=== PATIENT | male | born 1965 | race Caucasian/White ===

== ENCOUNTER 2017-07-11 04:54 | Emergency (ER) | payer BC ==
[2017-07-11] MEDS ORDERED: Metoclopramide 10 MG/2 ML SDV IVPUSH ONE (05:49)
[2017-07-11] MEDS ORDERED: HYDROmorphone 0.5 MG/0.5 ML SYRINGE IVPUSH ONE ×2 (05:50→09:48)
--- NOTE | 2017-07-11 05:54 | EDM.PDOC ---
ED HPI GENERAL MEDICAL PROBLEM - General Chief Complaint: Abdominal Pain Stated Complaint: STOMACH PAIN LEFT SIDE UNABLE TO KEEP FOOD DOWN Time Seen by Provider: 07/11/17 05:35 Source of Information: Reports: Patient History Limitations: Reports: No Limitations - History of Present Illness INITIAL COMMENTS - FREE TEXT/NARRATIVE: 52-year-old male reports sudden onset of nausea vomiting and followed shortly thereafter by large volume diarrhea about 2:30 in the morning on July 10. He had eaten a pizza which he thought was well cooked from [employer] the evening prior. He doesn't believe he ate out any time in the 24 hours prior to this. Subsequently sent continuous nausea attempts to drink Gatorade or Powerade seems to go right through him. He has retained about 6 crackers in the last 30 hours. Blood noted per rectum. Dual is large-volume water loss slightly yellow in color. He estimates 20 times in the last 24 hours. Mild associated lower abdominal cramping pain. States he's feeling very weak and lightheaded when he tries to stand. No previous similar illness. Onset: Sudden Onset Date: 07/10/17 Onset Time: 02:30 Duration: Hour(s): Location: Reports: Abdomen (Nausea vomiting and prolific large-volume water loss stools are a diarrhea.) Quality: Reports: Other (Has diffuse) Severity: Moderate (ache all over and headache) Improves with: Reports: None Worsens with: Reports: Other Context: Reports: Other (Acute onset of gastroenteritis. Possibly foodborne illness.). Denies: Activity, Exercise, Lifting, Sick Contact, Trauma Associated Symptoms: Reports: Fever/Chills, Headaches (Headache which she rates is currently 7 out of 10 in), Loss of Appetite, Malaise, Nausea/Vomiting (Some chills no defined fever and intractable), Other (Intractable severe diarrhea). Denies: Confusion, Chest Pain, Cough, cough w sputum, Diaphoresis ( not go away. ), Rash, Shortness of Breath, Syncope Treatments CIGARETTE MAKING EXAMINER: Reports: Acetaminophen (Unsure if it stayed down or not.) Right Flank Pain Score (Numeric/FACES): 5 - Related Data Allergies Allergy/AdvReac Type Severity Reaction Status Date / Time bee pollen Allergy Anaphylactic Verified 07/11/17 05:02 Shock Home Meds: Home Meds Ciprofloxacin HCl [Cipro] 500 mg PO BID #12 tablet 07/11/17 [Rx] Dicyclomine [Bentyl] 20 mg PO Q6H PRN #8 tablet 07/11/17 [Rx] Esomeprazole Magnesium 40 mg PO DAILY 07/11/17 [History] Hydrochlorothiazide 25 mg PO DAILY 07/11/17 [History] Nabumetone [Relafen] 500 mg PO DAILY 07/11/17 [History] Ondansetron [Zofran] 4 mg BUCCAL Q6H PRN #8 tab 07/11/17 [Rx] Quinapril HCl 40 mg PO DAILY 07/11/17 [History] Sertraline HCl 200 mg PO DAILY 07/11/17 [History] amLODIPine Besylate [Amlodipine Besylate] 5 mg PO DAILY 07/11/17 [History] atorvaSTATin Calcium [Atorvastatin Calcium] 20 mg PO DAILY 07/11/17 [History] Past Medical History HEENT History: Reports: Impaired Vision Other HEENT History: Wears glasses Cardiovascular History: Reports: High Cholesterol, Hypertension Gastrointestinal History: Reports: GI Bleed, PUD (Had a significant bleed from a peptic ulcer in 2006 with a hemoglobin of 4 requiring multiple blood transfusions. He does remember if he was ever told he had H. pylori infection.) Psychiatric History: Reports: Depression - Past Surgical History Musculoskeletal Surgical History: Reports: Arthroscopic Knee, Arthroscopic Procedure, Shoulder Replacement Social & Family History - Tobacco Use Smoking Status *Q: Never Smoker - Alcohol Use Days Per Week of Alcohol Use: 7 Number of Drinks Per Day: 2 Total Drinks Per Week: 14 - Recreational Drug Use Recreational Drug Use: No - Living Situation & Occupation Living situation: Reports: Single Occupation: Employed [employer] [facility] - Review of Systems Review Of Systems: See Below Constitutional: Reports: Chills, Malaise, Weakness, Fatigue, Decreased Appetite , Weight Loss. Denies: Fever HEENT: Reports: Glasses Respiratory: Reports: No Symptoms Cardiovascular: Reports: No Symptoms Endocrine: Reports: Fatigue GI/Abdominal: Reports: Abdominal Pain (Mostly across the lower ribs bilaterally into his flanks. Described as a deep ache), Diarrhea (Severe watery diarrhea with large volume loss. He estimates 20 times in the last 24 hours.), Decreased Appetite (As he normally 6 crackers in the last 24 hours. Even Gatorade that he puts in seems to go right through him.), Nausea, Vomiting : Reports: Other (Decreased urinary output) Musculoskeletal: Reports: Other (Diffuse mid back pain in the flanks.) Skin: Reports: No Symptoms Neurological: Reports: Dizziness, Weakness (With standing. Feels like he's going to collapse. Analyzed) Psychiatric: Reports: No Symptoms Hematologic/Lymphatic: Reports: No Symptoms Immunologic: Reports: No Symptoms ED EXAM, GI/ABD - Physical Exam Exam: See Below Exam Limited By: No Limitations General Appearance: Alert, WD/WN, No Apparent Distress Eyes: Bilateral: Normal Appearance (No jaundice.) Throat/Mouth: Other Head: Atraumatic (Tongue is dry and coated.), Normocephalic Neck: Normal Inspection, Supple, Non-Tender, Full Range of Motion. No: Lymphadenopathy (L), Lymphadenopathy (R) Respiratory/Chest: No Respiratory Distress, Lungs Clear, Normal Breath Sounds, No Accessory Muscle Use, Other (No smell of ketones on his breath.) Cardiovascular: Normal Peripheral Pulses, Regular Rate, Rhythm, No Edema, No Gallop, No Murmur GI/Abdominal Exam: Soft, Non-Tender, No Organomegaly, No Abnormal Bruit, No Mass , Tender (Slightly tender left lower quadrant in the distribution of the sigmoid colon.), Abnormal Bowel Sounds (Bowel sounds are hyperactive in all 4 quadrants.). No: Guarding, Rigid, Rebound Back Exam: Normal Inspection, Full Range of Motion. No: CVA Tenderness (L), CVA Tenderness (R) Extremities: Other (States he fell on the evening of Monday, July 09. Skin and up his volar aspect of his right wrist. No evidence of infection. No evidence of fracture of the wrist.) Neurological: Alert, Oriented, CN II-XII Intact, Normal Cognition, No Motor/ Sensory Deficits Psychiatric: Other (Mildly cantankerous. Not feeling well) Skin Exam: Warm, Dry, Intact, Normal Color, No Rash Course - Vital Signs Last Recorded V/S: Last Vital Signs Temp 36.3 C 07/11/17 05:02 Pulse 85 07/11/17 05:02 Resp 18 07/11/17 05:02 BP 143/89 H 07/11/17 05:02 Pulse Ox 95 07/11/17 05:02 - Orders/Labs/Meds Orders: Active Orders 24 hr Category Date Time Status CBC WITH MANUAL DIFF [HEME] Stat Lab 07/11/17 06:15 Results CULTURE STOOL + SHIGATOX [RM] Stat Lab 07/11/17 06:00 Received Dextrose 5%-Lactated Ringers 1,000 ml Med 07/11/17 06:00 Active IV ASDIRECTED Dextrose 5%-Lactated Ringers 1,000 ml Med 07/11/17 07:45 Ordered IV ASDIRECTED Medication Orders Dextrose/Lactated Ringer's (Dextrose 5%-Lactated Ringers) 1,000 mls @ 999 mls/ hr IV ASDIRECTED JOJO Last Admin: 07/11/17 06:17 Dose: 999 mls/hr Labs: Laboratory Tests 07/11/17 07/11/17 07/11/17 Range/Units 06:00 06:00 06:15 WBC 9.52 H (4.23-9.07) K/mm3 RBC 5.38 (4.63-6.08) M/mm3 Hgb 16.4 (13.7-17.5) gm/L Hct 47.4 (40.1-51.0) % MCV 88.1 (79.0-92.2) fl MCH 30.5 (25.7-32.2) pg MCHC 34.6 (32.2-35.5) g/dl RDW Std Deviation 41.7 (35.1-43.9) fL Plt Count 259 (163-337) K/mm3 MPV 10.2 (9.4-12.3) fl Sodium (136-145) mEq/L Potassium (3.5-5.1) mEq/L Chloride (98-107) mEq/L Carbon Dioxide (21-32) mEq/L Anion Gap (5-15) BUN (7-18) mg/dL Creatinine (0.7-1.3) mg/dL Est Cr Clr Drug Dosing mL/min Estimated GFR (MDRD) (>60) mL/min BUN/Creatinine Ratio (14-18) Glucose (74-106) mg/dL Serum Osmolality (280-300) mosm/kg Lactic Acid (0.4-2.0) mmol/L Calcium (8.5-10.1) mg/dL Magnesium (1.8-2.4) mg/dl Total Bilirubin (0.2-1.0) mg/dL AST (15-37) U/L ALT (16-63) U/L Alkaline Phosphatase (46-116) U/L C-Reactive Protein (<1.0) mg/dL Total Protein (6.4-8.2) g/dl Albumin (3.4-5.0) g/dl Globulin gm/dL Albumin/Globulin Ratio (1-2) Urine Color Yellow (Yellow) Urine Appearance Clear (Clear) Urine pH 6.0 (5.0-8.0) Ur Specific [place] > or = 1.030 (1.005-1.030) Urine Protein 1+ H (Negative) Urine Glucose (UA) Negative (Negative) Urine Ketones Negative (Negative) Urine Occult Blood Negative (Negative) Urine Nitrite Negative (Negative) Urine Bilirubin Negative (Negative) Urine Urobilinogen 0.2 (0.2-1.0) Ur Leukocyte Esterase Negative (Negative) Urine RBC Not seen (0-5) /hpf Urine WBC 0-5 (0-5) /hpf Ur Epithelial Cells Not seen (0-5) /hpf Urine Bacteria Not seen (FEW) /hpf Urine Mucus Many H (FEW) /hpf Ketones (0.0-0.3) mM C.difficile [id number] Presumptive negative C. difficile Tox (PCR) Negative 07/11/17 07/11/17 07/11/17 Range/Units 06:15 06:15 06:15 WBC (4.23-9.07) K/mm3 RBC (4.63-6.08) M/mm3 Hgb (13.7-17.5) gm/L Hct (40.1-51.0) % MCV (79.0-92.2) fl MCH (25.7-32.2) pg MCHC (32.2-35.5) g/dl RDW Std Deviation (35.1-43.9) fL Plt Count (163-337) K/mm3 MPV (9.4-12.3) fl Sodium 135 L (136-145) mEq/L Potassium 3.2 L (3.5-5.1) mEq/L Chloride 98 (98-107) mEq/L Carbon Dioxide 23 (21-32) mEq/L Anion Gap 17.2 H (5-15) BUN 21 H (7-18) mg/dL Creatinine 1.1 (0.7-1.3) mg/dL Est Cr Clr Drug Dosing 76.77 mL/min Estimated GFR (MDRD) > 60 (>60) mL/min BUN/Creatinine Ratio 19.1 H (14-18) Glucose 123 H (74-106) mg/dL Serum Osmolality 288 (280-300) mosm/kg Lactic Acid 1.5 (0.4-2.0) mmol/L Calcium 8.9 (8.5-10.1) mg/dL Magnesium 2.0 (1.8-2.4) mg/dl Total Bilirubin 1.2 H (0.2-1.0) mg/dL AST 57 H (15-37) U/L ALT 105 H (16-63) U/L Alkaline Phosphatase 77 (46-116) U/L C-Reactive Protein 4.5 H* (<1.0) mg/dL Total Protein 8.3 H (6.4-8.2) g/dl Albumin 4.6 (3.4-5.0) g/dl Globulin 3.7 gm/dL Albumin/Globulin Ratio 1.2 (1-2) Urine Color (Yellow) Urine Appearance (Clear) Urine pH (5.0-8.0) Ur Specific [place] (1.005-1.030) Urine Protein (Negative) Urine Glucose (UA) (Negative) Urine Ketones (Negative) Urine Occult Blood (Negative) Urine Nitrite (Negative) Urine Bilirubin (Negative) Urine Urobilinogen (0.2-1.0) Ur Leukocyte Esterase (Negative) Urine RBC (0-5) /hpf Urine WBC (0-5) /hpf Ur Epithelial Cells (0-5) /hpf Urine Bacteria (FEW) /hpf Urine Mucus (FEW) /hpf Ketones 0.33 (0.0-0.3) mM C.difficile [id number] C. difficile Tox (PCR) Meds: Medications Generic Name Dose Route Start Last Admin Trade Name Freq PRN Reason Stop Dose Admin Dextrose/Lactated Ringer's 1,000 mls @ 999 mls/hr 07/11/17 06:00 07/11/17 06: 17 Dextrose 5%-Lactated Ringers IV 999 mls/hr ASDIRECTED JOJO Administration Discontinued Medications Generic Name Dose Route Start Last Admin Trade Name Freq PRN Reason Stop Dose Admin Hydromorphone HCl 0.5 mg 03/13/18 05:50 07/11/17 06:17 Dilaudid IVPUSH 07/11/17 05:51 0.5 mg ONETIME ONE Administration Metoclopramide HCl 10 mg 07/11/17 05:49 07/11/17 06:17 Reglan IVPUSH 07/11/17 05:50 10 mg ONETIME ONE Administration - Radiology Interpretation Free Text/Narrative:: 52-year-old male presents to the ED with a 30 hour history of intractable nausea vomiting and prolific large volume stool losses. He estimates he's gone 20 times in the last 24 hours. Persistent nausea intermittent vomiting. Gatorade seems to go right through him. He has had no antibiotic usage in the last 6 weeks. He ate a pizza from [employer] that he cooked himself at home on Monday evening prior to becoming ill. Therefore the possibility of foodborne illness exists. Clinically he is volume depleted. Diffuse upper abdominal and flank pain suggest metabolic acidosis. Plan D5 Ringer's lactate at open. Given Dilaudid 0.5 mg IV for headache relief Reglan 10 mg IV for nausea relief. Routine labs to be obtained stool for culture and sensitivity C. difficile and WBCs if obtained. - Re-Assessments/Exams Free Text/Narrative Re-Assessment/Exam: 07/11/17 07:12 White count is 9.5 to differential pending. Hemoglobin is good at 16.4 hematocrit of 47.4 suggesting possible mild hemoconcentration. Platelets 259,000. Sodium 135 potassium slightly low at 3.2. Chloride is 98 bicarbonate is 23. And a gap is slightly elevated at 17.2. BUNs 21. Glucose is 123. Serum osmolality is pending. Lactic acid is 1.5. Calcium 8.9. Magnesium normal at 2.0 bilirubin elevated at 1.2. AST is 57 ALT is 105. Alkaline phosphatase is 77. C-reactive protein is elevated at 4.5. Urinalysis is normal. Stool sample shows no white blood cells seen. C. difficile pending Departure - Departure Disposition: Home, Self-Care 01 Condition: Fair Clinical Impression: Gastroenteritis due to food toxin - Discharge Information Prescriptions: Ciprofloxacin HCl [Cipro] 500 mg PO BID #12 tablet Dicyclomine [Bentyl] 20 mg PO Q6H PRN #8 tablet PRN Reason: Abdominal cramps/diarrhea Ondansetron [Zofran] 4 mg BUCCAL Q6H PRN #8 tab PRN Reason: nausea or vomiting Referrals: PCP,None [Primary Care Provider] - Forms: ED Department Discharge, ED Return to Work/School Form Additional Instructions: Evaluation in the emergency room today in regards to development of acute onset of severe nausea and vomiting and large-volume stool loss. Suspect progressed over the last 30 hours and has remained continuous. This is resulted in volume depletion with moderate dehydration and low serum potassium levels. You were treated in the ED with 2 L of IV fluids as well as potassium supplementation to bring her potassium up to normal. You received Reglan intravenously initially to arrest vomiting. No small dose of Dilaudid 0.5 mg IV for headache relief. Stool analysis shows no white blood cells to suggest a bacterial component to the infection. It appears that this is most likely foodborne/ toxin illness. Treatment at home is to be Zofran 4 mg under the tongue every 4-6 hours needed for nausea or vomiting relief. Bentyl 20 mg every 6 hours until diarrhea stops. Cipro antibiotic is to be taken twice daily for the next 6 days to kill bacteria that may be secreting toxin causing the diarrhea. Diet should be clear fluids ideally Gatorade/Powerade 5 ounces sipped per hour as it's very similar to intravenous fluids. Once this was tolerated may try soda crackers. Emesis is tolerated may advance to toast soup broth, turkey rice, chicken noodle soup etc. Avoid all dairy products and no great per apple juice until stools are formed backup. Expect marked improvement over the next 48 hours. Note given to excuse her from the work place for the next 3 days. Return to the ED if not markedly improved in48- 72 hours time - My Orders Last 24 Hours: My Active Orders 07/11/17 06:00 CULTURE STOOL + SHIGATOX [RM] Stat Dextrose 5%-Lactated Ringers 1,000 ml IV ASDIRECTED 07/11/17 06:15 CBC WITH MANUAL DIFF [HEME] Stat 07/11/17 07:45 Dextrose 5%-Lactated Ringers 1,000 ml IV ASDIRECTED - Assessment/Plan Last 24 Hours: My Active Orders 07/11/17 06:00 CULTURE STOOL + SHIGATOX [RM] Stat Dextrose 5%-Lactated Ringers 1,000 ml IV ASDIRECTED 07/11/17 06:15 CBC WITH MANUAL DIFF [HEME] Stat 07/11/17 07:45 Dextrose 5%-Lactated Ringers 1,000 ml IV ASDIRECTED
[2017-07-11] MEDS ORDERED: Dextrose 5%-Lactated Ringers 1,000 ML IV SCH ×2 (06:00→07:45)
[2017-07-11] MEDS ORDERED: Potassium Chloride 10 MEQ in Premix Bag 1 BAG IV ONE (07:37)
== END 2017-07-11 10:20 | disposition home or self-care (01) ==
LOC: JD.ED 04:54
DX: A05.9 Bacterial foodborne intoxication, unspecified (principal); I10 Essential (primary) hypertension; E78.00 Pure hypercholesterolemia, unspecified; F32.9 Major depressive disorder, single episode, unspecified; Z79.899 Other long term (current) drug therapy; Z91.030 Bee allergy status
CPT/HCPCS: 36415; 80053; 81001; 82009; 83605; 83735; 83930; 85025; 86140; 87046; 87493; 89055; 96361; 96365; 96375; 96376; 99284; J1170; J2765; J3480; J7042; 87427

== ENCOUNTER 2019-10-24 05:52 | Inpatient (IN) | payer BC ==
--- NOTE | 2019-10-23 16:44 | PCM.PREANE ---
Preanesthetic Assessment - Procedure Proposed Procedure: Left Total Knee Arthroplasty - Anesthesia/Transfusion/Family Hx Anesthesia History: Prior Anesthesia Without Reaction Family History of Anesthesia Reaction: No Transfusion History: Prior Transfusion Without Reaction Intubation History: Unknown - Review of Systems General: No Symptoms Pulmonary: No Symptoms (Asthma, ETOH: occasionally) Cardiovascular: No Symptoms (HTN) Gastrointestinal: No Symptoms Neurological: No Symptoms (Trigeminal Neuralgia of left side of face, History of Vertebrobasilar dolichoectasia), Numbness (left side of mouth (teeth)), Tingling (occasionally bilateral legs) Other: Reports: None (Mood disorders), Easy Bruising, Depression, Anxiety - Physical Assessment NPO Status Date: 10/23/19 NPO Status Time: 22:00 Vital Signs: HR:65 B/P:127/75 Sat:97% Resp:16 Temp:98.2 Height: 1.75 m Weight: 78.018 kg ASA Class: 3 Mental Status: Alert & Oriented x3 Airway Class: Mallampati = 2 Dentition: Reports: Normal Dentition, Caries Thyro-Mental Finger Breadths: 3 Mouth Opening Finger Breadths: 3 ROM/Head Extension: Full Lungs: Clear to Auscultation, Normal Respiratory Effort Cardiovascular: Regular Rate, Regular Rhythm, No Murmurs - Lab Values: All labs reviewed and noted and within acceptable ranges to proceed with scheduled procedure. - Imaging/EKG Impressions: EKG: SR rate=53 CXR: negative - Allergies Allergies/Adverse Reactions: Allergies Allergy/AdvReac Type Severity Reaction Status Date / Time bee pollen Allergy Anaphylactic Verified 10/23/19 15:19 Shock - Anesthesia Plan Pre-Op Medication Ordered: Beta Clifford, Other (PreOp meds: lyrica, tylenol, oxycodone all PO at 0617) Beta Clifford: Metoprolol Med Last Dose Date: 10/24/19 Med Last Dose Time: 05:00 - Acknowledgements Anesthesia Type Planned: Spinal, Regional Block (Left Adductor Canal Block under US guidance for post operative pain control requested by Dr. Donovan.) Pt an Appropriate Candidate for the Planned Anesthesia: Yes Alternatives and Risks of Anesthesia Discussed w Pt/Guardian: Yes Pt/Guardian Understands and Agrees with Anesthesia Plan: Yes PreAnesthesia Questionnaire HEENT History: Reports: Impaired Vision Other HEENT History: Wears glasses Cardiovascular History: Reports: High Cholesterol, Hypertension Respiratory History: Reports: Asthma Gastrointestinal History: Reports: GI Bleed, PUD Genitourinary History: Reports: None PARAEDUCATOR History: Reports: None Musculoskeletal History: Reports: Osteoarthritis, Other (See Below) Other Musculoskeletal History: joint pain Neurological History: Reports: Other (See Below) Other Neuro History: trigeminal neuralgia, vertebrobasilar dolichoectasia, percutaneous balloon compression procedure done for trigeminal neuralgia Psychiatric History: Reports: Depression, Other (See Below) Other Psychiatric History: insomnia, ETOH abx Endocrine/Metabolic History: Reports: None Hematologic History: Reports: Blood Transfusion(s) Immunologic History: Reports: None Oncologic (Cancer) History: Reports: None - Past Surgical History Respiratory Surgical History: Reports: None GI Surgical History: Reports: Colonoscopy, EGD Female Surgical History: Reports: Breast Implant Male Surgical History: Reports: None Endocrine Surgical History: Reports: None Neurological Surgical History: Reports: None Musculoskeletal Surgical History: Reports: Arthroscopic Knee, Arthroscopic Procedure, Shoulder Replacement Oncologic Surgical History: Reports: None Dermatological Surgical History: Reports: Other (See Below) - SUBSTANCE USE Smoking Status *Q: Never Smoker Second Hand Smoke Exposure: No Days Per Week of Alcohol Use: 7 Number of Drinks Per Day: 2 Total Drinks Per Week: 14 Recreational Drug Use History: No - HOME MEDS Home Medications: Home Meds Acetaminophen [Tylenol Extra Strength] 1,000 mg PO Q6H PRN 10/23/19 [History] Aspirin [Children's Aspirin] 81 mg PO DAILY 10/23/19 [History] Cholecalciferol (Vitamin D3) [Vitamin D3] 5,000 unit PO DAILY 10/23/19 [History] Esomeprazole Magnesium 40 mg PO DAILY 10/23/19 [History] Eszopiclone 3 mg PO BEDTIME PRN 10/23/19 [History] Metoprolol Tartrate 50 mg PO BID 10/23/19 [History] Multivitamin [Daily Multiple Vitamin] 1 tab PO DAILY 10/23/19 [History] Nabumetone 500 Mg 500 mg PO BID 10/23/19 [History] Quinapril HCl 40 mg PO DAILY 10/23/19 [History] Sertraline HCl 200 mg PO BEDTIME 10/23/19 [History] amLODIPine Besylate [Amlodipine Besylate] 5 mg PO DAILY 10/23/19 [History] atorvaSTATin Calcium [Atorvastatin Calcium] 20 mg PO DAILY 10/23/19 [History] carBAMazepine [Carbamazepine ER] 100 mg PO QPM 10/23/19 [History] carBAMazepine [Carbamazepine ER] 200 mg PO QAM 10/23/19 [History] carBAMazepine [TEGretol XR] 100 mg PO QID PRN 10/23/19 [History] hydroCHLOROthiazide [Hydrochlorothiazide] 25 mg PO DAILY 10/23/19 [History] - CURRENT (IN HOUSE) MEDS Current Meds: Current Medications Lactated Ringer's (Ringers, Lactated) 1,000 mls @ 125 mls/hr IV ASDIRECTED JOJO Stop: 10/24/19 23:00 Lidocaine/Sodium Bicarbonate (Buffered Lidocaine 1% In Ns 8.4%) 0.25 ml IDERM ONETIME PRN PRN Reason: Prior to IV Start Stop: 10/24/19 18:00 Sodium Chloride (Saline Flush) 10 ml FLUSH ASDIRECTED PRN PRN Reason: Keep Vein Open Stop: 10/24/19 18:00
[~2019-10-24 05:52] MED LIST: EPINEPHrine 1 MG/ML SDV ONE; Ketamine 500 mg/10 ML MDV ONE; Ketorolac 30 MG/ML SDV ONE; Lactated Ringers 1,000 ML IV SCH; Lactated Ringers 2,000 ML ONE; Lidocaine 1% 6 ML ONE; Lidocaine 1%/Sod Bicarbonate in NS 8.4% 1 ML Syringe IDERM PRN; Midazolam 1 MG/ML 2 ML SDV ONE; Ondansetron 4 MG/2 ML SDV ONE; Propofol 200 MG/20 ML SDV ONE; Ropivacaine 0.5% 5 MG/ML 30 ML SDV ONE; Sodium Chloride 0.9% 10 ML Syringe FLUSH PRN; ceFAZolin 1 GM Vial ONE; fentaNYL 100 MCG/2 ML SDV ONE
[2019-10-24] MEDS ORDERED: Acetaminophen 325 MG Tab PO SCH (05:53)
[2019-10-24] MEDS ORDERED: Pregabalin 25 MG Cap PO SCH (05:53)
--- NOTE | 2019-10-24 05:53 | PCM.SN.2 ---
- Free Text/Narrative Note: Left selective femoral nerve block at the adductor canal for post-procedure pain control under US guidance requested by Dr. Donovan. Time Out: 0850 Start: 50 End: 856 Chart reviewed. Consent signed. Questions answered. Appropriate monitors applied. Time out performed. Left mid-shaft femur identified with ultrasound, scanning medially of femur, the femoral artery in the adductor canal visualized, and the femoral nerve located laterally to the artery. The skin was prepped lateral to the ultrasound probe with chlorahexadine times two. The 21ga 4 insulated block needle was inserted under direct ultrasound guidance into the adductor canal. 25mL of 0.5% ropivacaine with 1:200,000 epinephrine was injected circumferentially around the nerve with intermittent negative aspiration noted. Patient tolerated the procedure well. Sterile technique noted along with sterile gloves, mask, and sterile probe cover. See picture on progress note and vital signs on nurses notes. Block completed in PACU. Lucía Gates CRNA
[2019-10-24] MEDS ORDERED: oxyCODONE 5 MG Tab PO SCH (05:54)
[2019-10-24] MEDS ORDERED: Famotidine 20 MG Tab PO SCH (06:00)
[2019-10-24] MEDS ORDERED: Ondansetron 4 MG/2 ML SDV IVPUSH PRN ×2 (06:05→07:15)
[2019-10-24] MEDS ORDERED: Sennosides 8.6 MG Tab PO PRN (06:05)
[2019-10-24] MEDS ORDERED: Magnesium Hydroxide 400 MG/5 ML Susp 30 ML Cup PO PRN (06:05)
[2019-10-24] MEDS ORDERED: Bisacodyl 5 MG Tab PO PRN (06:05)
[2019-10-24] MEDS ORDERED: Morphine 2 MG/ML SYRINGE IVPUSH PRN (06:05)
[2019-10-24] MEDS ORDERED: Albuterol 0.083% 2.5 MG/3 ML Neb Soln NEB ONE (06:36)
[2019-10-24] MEDS ORDERED: diphenhydrAMINE 50 MG/ML SDV IVPUSH PRN (07:15)
[2019-10-24] MEDS ORDERED: Albuterol 0.083% 2.5 MG/3 ML Neb Soln NEB PRN (07:15)
[2019-10-24] MEDS ORDERED: Phenylephrine 1 MG in Sodium Chloride 0.9% 10 ML IV SCH (07:15)
[2019-10-24] MEDS ORDERED: fentaNYL 100 MCG/2 ML SDV IVPUSH PRN (07:15)
[2019-10-24] MEDS ORDERED: ePHEDrine 50 MG/ML SDV IVPUSH PRN (07:15)
--- NOTE | 2019-10-24 07:31 | PCM.CONS ---
H&P History of Present Illness - General Date of Service: 10/24/19 Admit Problem/Dx: Admission Diagnosis/Problem Admission Diagnosis/Problem Osteoarthritis of knee Source of Information: Patient, Old Records, Provider, RN, RN Notes Reviewed History Limitations: Reports: No Limitations - History of Present Illness Initial Comments - Free Text/Narative: Maik Villafuerte is a 54 yo male patient of Dr. Donovan who is post-operative day 0 of left TKA. Hospital medicine was consulted for post-operative medical care of the following listed medical conditions. At this time he is resting comfortably in bed. Pain is controlled. He denies any shortness of breath, palpitations, nausea, or vomiting. He reports 4-5/10 left chest pain and back pain. 12-lead EKG and troponin are pending He carries a history of: Asthma, HTN, Trigeminal neuralgia of the left side of the face, Hx/o vertebrobasilar dolichoectasia, depression, anxiety, HLD, Hx/o GI Bleed, PUD, Chronic ETOH use. He was never a smoker. He is a full code. His primary care provider is Dr. Castillo. - Related Data Allergies/Adverse Reactions: Allergies Allergy/AdvReac Type Severity Reaction Status Date / Time bee pollen Allergy Anaphylactic Verified 10/23/19 15:19 Shock Home Medications: Home Meds Acetaminophen [Tylenol Extra Strength] 1,000 mg PO Q6H PRN 10/23/19 [History] Aspirin [Children's Aspirin] 81 mg PO DAILY 10/23/19 [History] Cholecalciferol (Vitamin D3) [Vitamin D3] 5,000 unit PO DAILY 10/23/19 [History] Esomeprazole Magnesium 40 mg PO DAILY 10/23/19 [History] Eszopiclone 3 mg PO BEDTIME PRN 10/23/19 [History] Metoprolol Tartrate 50 mg PO BID 10/23/19 [History] Multivitamin [Daily Multiple Vitamin] 1 tab PO DAILY 10/23/19 [History] Nabumetone 500 Mg 500 mg PO BID 10/23/19 [History] Quinapril HCl 40 mg PO DAILY 10/23/19 [History] Sertraline HCl 200 mg PO BEDTIME 10/23/19 [History] amLODIPine Besylate [Amlodipine Besylate] 5 mg PO DAILY 10/23/19 [History] atorvaSTATin Calcium [Atorvastatin Calcium] 20 mg PO DAILY 10/23/19 [History] carBAMazepine [Carbamazepine ER] 100 mg PO QAM 10/23/19 [History] carBAMazepine [Carbamazepine ER] 100 mg PO QPM 10/23/19 [History] carBAMazepine [TEGretol XR] 100 mg PO QID PRN 10/23/19 [History] hydroCHLOROthiazide [Hydrochlorothiazide] 25 mg PO DAILY 10/23/19 [History] Past Medical History HEENT History: Reports: Impaired Vision Other HEENT History: Wears glasses Cardiovascular History: Reports: High Cholesterol, Hypertension Respiratory History: Reports: Asthma Gastrointestinal History: Reports: GI Bleed, PUD Genitourinary History: Reports: None TITLE EXAMINER History: Reports: None Musculoskeletal History: Reports: Osteoarthritis, Other (See Below) Other Musculoskeletal History: joint pain Neurological History: Reports: Other (See Below) Other Neuro History: trigeminal neuralgia, vertebrobasilar dolichoectasia, percutaneous balloon compression procedure done for trigeminal neuralgia Psychiatric History: Reports: Depression, Other (See Below) Other Psychiatric History: insomnia, ETOH abx Endocrine/Metabolic History: Reports: None Hematologic History: Reports: Blood Transfusion(s) Immunologic History: Reports: None Oncologic (Cancer) History: Reports: None - Past Surgical History Respiratory Surgical History: Reports: None GI Surgical History: Reports: Colonoscopy, EGD Female Surgical History: Reports: Breast Implant Male Surgical History: Reports: None Endocrine Surgical History: Reports: None Neurological Surgical History: Reports: None Musculoskeletal Surgical History: Reports: Arthroscopic Knee, Arthroscopic Procedure, Shoulder Replacement Oncologic Surgical History: Reports: None Dermatological Surgical History: Reports: Other (See Below) Social & Family History - Tobacco Use Smoking Status *Q: Never Smoker Second Hand Smoke Exposure: No - Caffeine Use Caffeine Use: Reports: Soda - Alcohol Use Days Per Week of Alcohol Use: 7 Number of Drinks Per Day: 2 Total Drinks Per Week: 14 - Recreational Drug Use Recreational Drug Use: No - Living Situation & Occupation Living situation: Reports: Single Occupation: Employed H&P Review of Systems - Review of Systems: Review Of Systems: See Below General: Reports: No Symptoms. Denies: Fever, Chills HEENT: Reports: No Symptoms. Denies: Headaches, Sore Throat Pulmonary: Reports: No Symptoms. Denies: Shortness of Breath, Wheezing, Pleuritic Chest Pain, Cough, Sputum Cardiovascular: Reports: Chest Pain. Denies: Palpitations, Dyspnea on Exertion Gastrointestinal: Reports: No Symptoms. Denies: Abdominal Pain, Constipation, Diarrhea, Nausea, Vomiting Genitourinary: Reports: No Symptoms. Denies: Pain Musculoskeletal: Reports: Back Pain, Leg Pain Skin: Reports: No Symptoms. Denies: Cyanosis Psychiatric: Reports: No Symptoms. Denies: Confusion Neurological: Reports: Numbness, Tingling, Difficulty Walking, Weakness, Gait Disturbance Hematologic/Lymphatic: Reports: No Symptoms Immunologic: Reports: No Symptoms Exam - Exam Exam: See Below - Vital Signs Vital Signs: Last Vital Signs Temp 98.2 F 10/24/19 05:50 Pulse 65 10/24/19 05:50 Resp 16 10/24/19 05:50 BP 127/75 10/24/19 05:50 Pulse Ox 97 10/24/19 05:50 Weight: 172 lb - Exam Quality Assessment: DVT Prophylaxis General: Alert, Oriented, Cooperative. No: Mild Distress HEENT: Conjunctiva Clear, EACs Clear, Hearing Intact, Mucosa Moist & [place], Nares Patent, Posterior Pharynx Clear, PERRLA Neck: Supple, Trachea Midline Lungs: Clear to Auscultation, Normal Respiratory Effort Cardiovascular: Regular Rhythm, Bradycardia GI/Abdominal Exam: Normal Bowel Sounds, Soft, Non-Tender, No Distention (Male) Exam: Deferred Rectal (Males) Exam: Deferred Extremities: Normal Capillary Refill, Leg Pain, Limited Range of Motion, Other (Bandage in place on left leg. Bandage is dry and intact. Cooling pack in place. ) Peripheral Pulses: 2+: Femoral (L), Femoral (R), Dorsalis Pedis (L), Dorsalis Pedis (R) Skin: Warm, Dry, Intact Neurological: Cranial Nerves Intact (Grossly ) Neuro Extensive - Mental Status: Alert, Oriented x3, Normal Mood/Affect - Patient Data Lab Results Last 24 hrs: Laboratory Results - last 24 hr 10/22/19 Range/Units 15:30 COVID-19 PCR Not detected (NOT DETECT) Sepsis Event Note - Focused Exam Vital Signs: Vital Signs Temp Pulse Resp BP Pulse Ox 10/24/19 05:50 98.2 F 65 16 127/75 97 Date Exam was Performed: 10/24/19 Time Exam was Performed: 18:40 Consult PN Assessment/Plan POD#: 0 Procedures: Procedures ASSAY OF BLOOD OSMOLALITY (07/11/17) ASSAY OF LACTIC ACID (07/11/17) ASSAY OF MAGNESIUM (07/11/17) C DIFF AMPLIFIED PROBE (07/11/17) C-REACTIVE PROTEIN (07/11/17) COMPLETE CBC W/AUTO DIFF WBC (07/11/17) COMPREHEN METABOLIC PANEL (07/11/17) EMERGENCY DEPT VISIT (02/11/18) HYDRATE IV INFUSION ADD-ON (07/11/17) LEUKOCYTE ASSESSMENT FECAL (07/11/17) MR-STAPH DNA AMP PROBE (10/04/19) ROUTINE VENIPUNCTURE (07/11/17) STOOL CULTR AEROBIC BACT EA (07/11/17) TEST FOR ACETONE/KETONES (07/11/17) THER/PROPH/DIAG INJ SC/IM (02/11/18) THER/PROPH/DIAG IV INF INIT (07/11/17) TX/PRO/DX INJ NEW DRUG ADDON (07/11/17) TX/PRO/DX INJ SAME DRUG ENERGY CONTROL OFFICER (07/11/17) URINALYSIS AUTO W/SCOPE (07/11/17) (1) S/P total knee arthroplasty SNOMED Code(s): 6130653339788, 910829544, 9032872070971 Code(s): Z96.659 - PRESENCE OF UNSPECIFIED ARTIFICIAL KNEE JOINT Current Visit: Yes (2) Osteoarthritis SNOMED Code(s): 494760817 Code(s): M19.90 - UNSPECIFIED OSTEOARTHRITIS, UNSPECIFIED SITE Current Visit: Yes (3) Asthma SNOMED Code(s): 335137311 Code(s): J45.909 - UNSPECIFIED ASTHMA, UNCOMPLICATED Current Visit: Yes (4) HTN (hypertension) SNOMED Code(s): 46979172 Code(s): I10 - ESSENTIAL (PRIMARY) HYPERTENSION Current Visit: Yes (5) Vertebrobasilar dolichoectasia SNOMED Code(s): 83172785 Code(s): I65.1 - OCCLUSION AND STENOSIS OF BASILAR ARTERY Current Visit: Yes (6) Depression SNOMED Code(s): 45019086 Code(s): F32.9 - MAJOR DEPRESSIVE DISORDER, SINGLE EPISODE, UNSPECIFIED Current Visit: Yes (7) Anxiety SNOMED Code(s): 95727999 Code(s): F41.9 - ANXIETY DISORDER, UNSPECIFIED Current Visit: Yes (8) HLD (hyperlipidemia) SNOMED Code(s): 92536400 Code(s): E78.5 - HYPERLIPIDEMIA, UNSPECIFIED Current Visit: Yes (9) PUD (peptic ulcer disease) SNOMED Code(s): 03172105 Code(s): K27.9 - PEPTIC ULC, SITE UNSP, UNSP AC OR CHR, W/O HEMOR OR PERF Current Visit: Yes (10) History of GI bleed SNOMED Code(s): 263038094 Code(s): Z87.19 - PERSONAL HISTORY OF OTHER DISEASES OF THE DIGESTIVE SYSTEM Current Visit: Yes (11) Chronic alcohol use SNOMED Code(s): 150674 Code(s): Z72.89 - OTHER PROBLEMS RELATED TO LIFESTYLE Current Visit: Yes (12) Trigeminal neuralgia of left side of face SNOMED Code(s): 20096993 Code(s): G50.0 - TRIGEMINAL NEURALGIA Current Visit: No (13) Chest pain SNOMED Code(s): 64827717 Code(s): R07.9 - CHEST PAIN, UNSPECIFIED Priority: High Current Visit: Yes Qualifiers: Chest pain type: unspecified Qualified Code(s): R07.9 - Chest pain, unspecified Problem List Initiated/Reviewed/Updated: Yes Plan: I/P: Acute: S/P left total knee arthroplasty - post-operative day 0 -DVT prophylaxis and pain management per primary care team -PT/OT -IS/RT -Monitor oxygen saturation -Titrate oxygen as needed -Home medications reviewed -Vital signs stable -Monitor labs -Pre-operative Hgb was 14.6 -Pre-operative GFR was 78 -Pre-operative BUN was 25 -Pre-operative creatinine was 0.99 -Pre-operative Hgb A1C was 5.1% -Pre-operative EKG shows a sinus bradycardia at 53 BPM -Pre-operative CXR showed nothing acute -Deemed moderate risk for total joint surgery by PCP Chest Pain -Reports 4-09/07 chest pain -Troponin negative -12-lead EKG shows sinus arrhythmia at 54 BPM, No signs of ischemia -Likely muscular skeletal in nature -Continue to monitor Osteoarthritis of left knee -Pain management per primary care team Chronic: Asthma HTN Trigeminal neuralgia of the left side of the face Hx/o vertebrobasilar dolichoectasia depression anxiety HLD Hx/o GI Bleed PUD Chronic ETOH use Plan: CM for discharge planning GI prophylaxis Home medications as indicated Other orders as listed above Routine AM labs He is a full code. His PCP is Dr. Castillo. Thank you for allowing us to participate in the care of this patient!! Requesting Provider: Dr. Donovan Date Consult Requested: 10/24/19 Patient History Reviewed: Yes Admission H&P Reviewed: Yes
[2019-10-24] MEDS: Iodine/Sodium Iodide 2% Tincture 30 ML Bottle ONE ×2 (07:37→08:04)
[2019-10-24] MEDS: ceFAZolin 1 GM Vial ONE ×2 (07:38→08:06)
[2019-10-24] MEDS: Bupivacaine 0.25% 10 ML SDV ONE ×2 (07:40→08:12)
[2019-10-24] MEDS: Morphine 8 MG, EPINEPHrine 0.3 MG, Cefuroxime 750 MG, Ketorolac 30 MG, Sodium Chloride ... PRN ×10 (07:40→08:12)
[2019-10-24] MEDS: Vancomycin 1 GM SDV ONE ×2 (07:41→08:17)
[2019-10-24] MEDS ORDERED: Propofol 200 MG/20 ML SDV ONE (07:54)
[2019-10-24] MEDS ORDERED: carBAMazepine 100 MG Tab.Chew PO PRN (08:47)
--- NOTE | 2019-10-24 08:48 | PCM.POSTAN ---
POST ANESTHESIA ASSESSMENT - MENTAL STATUS Mental Status: Alert, Oriented - VITAL SIGNS Vital Signs: Last Vital Signs Temp 97.1 10/24/19 08:42 Pulse 62 10/24/19 08:42 Resp 20 10/24/19 08:42 BP 101/49 10/24/19 08:42 Pulse Ox 95% 10/24/19 08:42 - RESPIRATORY Respiratory Status: Respiratory Rate WNL, Airway Patent, O2 Saturation Stable - CARDIOVASCULAR CV Status: Pulse Rate WNL, Blood Pressure Stable - GASTROINTESTINAL GI Status: No Symptoms - POST OP HYDRATION Hydration Status: Adequate & Stable
--- NOTE | 2019-10-24 11:28 | PCM.OPNOTE ---
- General Post-Op/Procedure Note Date of Surgery/Procedure: 10/24/19 Operative Procedure(s): left total knee arthroplasty Pre Op Diagnosis: left knee osteoarthrosis Post-Op Diagnosis: Same Anesthesia Technique: Local, MAC, Spinal Primary Surgeon: Ramirez Donovan Anesthesia Provider: Lucía Gates Communications Station Manager: Nguyen Blanco Communications Station Manager: Christine Pete EBL in mLs: 550 Complications: None Condition: Good Free Text/Narrative:: Intake & Output 10/23/19 10/24/19 10/24/19 22:59 06:59 14:59 Intake Total 1450 Balance 1450 6/ 35x10 9mm
[2019-10-24] MEDS: Acetaminophen/oxyCODONE 325-5 MG Tab PO PRN ×3 (11:49→20:58)
--- NOTE | 2019-10-24 13:40 | CR ---
Left knee: AP and crosstable lateral views left knee were obtained. Comparison: No prior left knee study is available. Knee prosthesis is noted. Components are aligned. Soft tissue air is noted from the surgical procedure. No acute fracture or other bony abnormality is appreciated. Impression: 1. Satisfactory postop radiographic appearance of recently placed left knee prosthesis. Diagnostic code #2 This report was dictated in MDT
[2019-10-24] MEDS: ceFAZolin 2 GM in Premix Bag 1 BAG IV SCH ×2 (15:04→22:12)
[2019-10-24] MEDS: Ketorolac 15 MG/ML SDV IVPUSH PRN ×2 (15:05→21:00)
[2019-10-24] MEDS ORDERED: carBAMazepine 100 MG Tab.Chew PO SCH (18:00)
[2019-10-24] MEDS: Cyclobenzaprine 10 MG Tab PO PRN (18:07)
[2019-10-24] MEDS: Cholecalciferol (Vitamin D3) 5,000 UNIT Tab PO SCH (18:30)
[2019-10-24] MEDS ORDERED: oxyCODONE 5 MG Tab PO PRN (19:48)
[2019-10-24] MEDS: Docusate Sodium 100 MG Cap PO SCH (21:00)
[2019-10-24] MEDS ORDERED: Sertraline 50 MG Tab PO SCH (21:00)
[2019-10-25] MEDS: Acetaminophen/oxyCODONE 325-5 MG Tab PO PRN ×2 (01:00→06:14)
[2019-10-25] MEDS: Cyclobenzaprine 10 MG Tab PO PRN (01:01)
[2019-10-25] MEDS: Aspirin 325 MG Tab.EC PO SCH ×2 (06:15→08:15)
[2019-10-25] MEDS: ceFAZolin 2 GM in Premix Bag 1 BAG IV SCH (06:17)
[2019-10-25] MEDS: Ketorolac 15 MG/ML SDV IVPUSH PRN (07:11)
--- NOTE | 2019-10-25 07:27 | PCM.CONSN ---
- General Info Date of Service: 10/25/19 Admission Dx/Problem (Free Text): Admission Diagnosis/Problem Admission Diagnosis/Problem Osteoarthritis of knee Functional Status: Reports: Pain Controlled, Tolerating Diet, Ambulating, Urinating, Incentive Spirometry. Denies: New Symptoms - Review of Systems General: Reports: No Symptoms. Denies: Fever, Chills HEENT: Reports: No Symptoms. Denies: Headaches, Sore Throat Pulmonary: Reports: No Symptoms. Denies: Shortness of Breath, Cough, Sputum, Wheezing Cardiovascular: Reports: Chest Pain (continued -09/07. ). Denies: Palpitations, Dyspnea on Exertion Gastrointestinal: Reports: No Symptoms. Denies: Abdominal Pain, Constipation, Diarrhea, Nausea, Vomiting Genitourinary: Reports: No Symptoms. Denies: Pain Musculoskeletal: Reports: Leg Pain Skin: Reports: No Symptoms. Denies: Cyanosis Neurological: Reports: Difficulty Walking, Gait Disturbance. Denies: Confusion Psychiatric: Reports: No Symptoms - Patient Data Vitals - Most Recent: Last Vital Signs Temp 98.1 F 10/24/19 18:12 Pulse 53 L 10/24/19 18:12 Resp 16 10/24/19 18:12 BP 147/84 H 10/24/19 18:12 Pulse Ox 100 10/24/19 18:12 Weight - Most Recent: 175 lb 3.2 oz I&O - Last 24 Hours: Intake & Output 10/24/19 10/25/19 10/25/19 22:59 06:59 14:59 Intake Total 720 624 Output Total 1500 Balance 720 -876 Lab Results Last 24 Hours: Laboratory Results - last 24 hr 10/24/19 10/25/19 10/25/19 Range/Units 11:35 05:10 05:10 WBC 8.91 (4.23-9.07) K/mm3 RBC 3.82 L (4.63-6.08) M/mm3 Hgb 11.9 L D (13.7-17.5) gm/dl Hct 35.8 L (40.1-51.0) % MCV 93.7 H D (79.0-92.2) fl MCH 31.2 (25.7-32.2) pg MCHC 33.2 (32.2-35.5) g/dl RDW Std Deviation 41.4 (35.1-43.9) fL Plt Count 263 (163-337) K/mm3 MPV 10.1 (9.4-12.3) fl Sodium 140 (136-145) mEq/L Potassium 4.1 (3.5-5.1) mEq/L Chloride 105 (98-107) mEq/L Carbon Dioxide 27 (21-32) mEq/L Anion Gap 12.1 (5-15) BUN 13 (7-18) mg/dL Creatinine 1.0 (0.7-1.3) mg/dL Est Cr Clr Drug Dosing 82.48 mL/min Estimated GFR (MDRD) > 60 (>60) mL/min BUN/Creatinine Ratio 13.0 L (14-18) Glucose 121 H (74-106) mg/dL Calcium 8.3 L (8.5-10.1) mg/dL Total Bilirubin 1.0 (0.2-1.0) mg/dL AST 52 H (15-37) U/L ALT 51 (16-63) U/L Alkaline Phosphatase 51 (46-116) U/L Troponin I < 0.017 (0.00-0.056) ng/mL Total Protein 5.9 L (6.4-8.2) g/dl Albumin 3.2 L (3.4-5.0) g/dl Globulin 2.7 gm/dL Albumin/Globulin Ratio 1.2 (1-2) Med Orders - Current: Current Medications Amlodipine Besylate (Norvasc) 5 mg PO DAILY [facility] Aspirin (Ecotrin) 325 mg PO BID [facility] Last Admin: 10/25/19 06:15 Dose: 325 mg Documented by: Bisacodyl (Dulcolax) 5 mg PO DAILY PRN PRN Reason: Constipation Carbamazepine (Tegretol) 100 mg PO QPM [facility] Last Admin: 10/24/19 18:06 Dose: 100 mg Documented by: Carbamazepine (Tegretol) 100 mg PO QID PRN PRN Reason: trigeminal neuralgia Carbamazepine (Tegretol Tab) 200 mg PO QAM [facility] Cholecalciferol (Vitamin D3) 5,000 unit PO DAILY [facility] Last Admin: 10/24/19 18:30 Dose: Not Given Documented by: Cyclobenzaprine HCl (Flexeril) 10 mg PO TID PRN PRN Reason: Spasms Last Admin: 10/25/19 01:01 Dose: 10 mg Documented by: Docusate Sodium (Colace) 100 mg PO BID [facility] Last Admin: 10/24/19 21:00 Dose: 100 mg Documented by: Lisinopril (Prinivil) 20 mg PO DAILY [facility] Magnesium Hydroxide (Milk Of Magnesia) 30 ml PO BID PRN PRN Reason: Constipation Metoprolol Tartrate (Lopressor) 50 mg PO BID [facility] Morphine Sulfate (Morphine) 2 mg IVPUSH Q2H PRN PRN Reason: Breakthrough Pain Last Admin: 10/24/19 19:41 Dose: 2 mg Documented by: Multivitamins (Thera) 1 each PO DAILY [facility] Ondansetron HCl (Zofran) 4 mg IVPUSH Q6H PRN PRN Reason: Nausea/Vomiting Oxycodone HCl (Oxycodone) 5 mg PO Q6H PRN PRN Reason: Pain Oxycodone/Acetaminophen (Percocet 325-5 Mg) 1 - 2 tab PO Q4H PRN PRN Reason: Pain Last Admin: 10/25/19 06:14 Dose: 2 tab Documented by: Pantoprazole Sodium (Protonix) 40 mg PO DAILY [facility] Senna (Senna) 8.6 mg PO BID PRN PRN Reason: Constipation Sertraline HCl (Zoloft) 200 mg PO BEDTIME [facility] Last Admin: 10/24/19 20:59 Dose: 200 mg Documented by: Simvastatin (Zocor) 20 mg PO DAILY [facility] Discontinued Medications Acetaminophen (Tylenol) 975 mg PO NOW [facility] Stop: 10/24/19 12:00 Last Admin: 10/24/19 06:10 Dose: 975 mg Documented by: Albuterol (Proventil Neb Soln) 2.5 mg NEB ONETIME ONE Stop: 10/24/19 06:37 Last Admin: 10/24/19 06:46 Dose: 2.5 mg Documented by: Albuterol (Proventil Neb Soln) 2.5 mg NEB ONETIME PRN PRN Reason: bronchodilation Stop: 10/24/19 12:00 Bupivacaine HCl (Sensorcaine-Mpf 0.25%) Confirm Administered Dose 30 ml .ROUTE .STK-MED ONE Stop: 10/24/19 06:31 Last Admin: 10/24/19 08:12 Dose: 30 ml Documented by: Cefazolin Sodium (Ancef) Confirm Administered Dose 2 gm .ROUTE .STK-MED ONE Stop: 10/24/19 05:44 Cefazolin Sodium (Ancef) Confirm Administered Dose 2 gm .ROUTE .STK-MED ONE Stop: 10/24/19 06:31 Last Admin: 10/24/19 08:06 Dose: 2 gm Documented by: Morphine Sulfate 8 mg/Epinephrine HCl 0.3 mg/Cefuroxime Sodium 750 mg/Ketorolac Tromethamine 30 mg/Sodium Chloride 7.9 ml 0 mg .XX ASDIRECTED PRN PRN Reason: Pain Stop: 10/24/19 12:00 Last Admin: 10/24/19 08:12 Dose: 788.3 mg Documented by: Diphenhydramine HCl (Benadryl) 25 mg IVPUSH Q6H PRN PRN Reason: pruritis Stop: 10/24/19 12:00 Ephedrine Sulfate (Ephedrine Sulfate) 5 mg IVPUSH ASDIRECTED PRN PRN Reason: Hypotension Stop: 10/24/19 12:00 Epinephrine HCl (Adrenalin) Confirm Administered Dose 1 mg .ROUTE .STK-MED ONE Stop: 10/24/19 05:33 Famotidine (Pepcid) 20 mg PO Q12H [facility] Last Admin: 10/24/19 18:30 Dose: Not Given Documented by: Fentanyl (Sublimaze) Confirm Administered Dose 100 mcg .ROUTE .STK-MED ONE Stop: 10/24/19 05:45 Fentanyl (Sublimaze) 50 mcg IVPUSH Q5M PRN PRN Reason: Pain Stop: 10/24/19 12:00 Lactated Ringer's (Ringers, Lactated) 1,000 mls @ 125 mls/hr IV ASDIRECTED [facility] Stop: 10/24/19 23:00 Lidocaine HCl (Xylocaine-Mpf 1%) Confirm Administered Dose 6 mls @ as directed .ROUTE .STK-MED ONE Stop: 10/24/19 05:44 Lactated Ringer's (Ringers, Lactated) Confirm Administered Dose 2,000 mls @ as directed .ROUTE .STK-MED ONE Stop: 10/24/19 05:44 Cefazolin Sodium/Dextrose 2 gm (/ Premix) 50 mls @ 100 mls/hr IV Q8H [facility] Stop: 10/25/19 06:59 Last Admin: 10/25/19 06:17 Dose: 100 mls/hr Documented by: Phenylephrine HCl 1 mg/ Sodium (Chloride) 10.1 mls @ 1 mls/sec IV TITRATE [facility]; Protocol Stop: 10/24/19 12:00 Iodine (Iodine 2% Mild Tincture) Confirm Administered Dose 30 ml .ROUTE .STK-MED ONE Stop: 10/24/19 06:31 Last Admin: 10/24/19 08:04 Dose: 18 ml Documented by: Ketamine HCl (Ketalar) Confirm Administered Dose 500 mg .ROUTE .STK-MED ONE Stop: 10/24/19 05:45 Ketorolac Tromethamine (Toradol) Confirm Administered Dose 0 mg .ROUTE .STK-MED ONE Stop: 10/24/19 05:44 Ketorolac Tromethamine (Toradol) 15 mg IVPUSH Q6H PRN PRN Reason: Pain Last Admin: 10/25/19 07:11 Dose: 15 mg Documented by: Lidocaine/Sodium Bicarbonate (Buffered Lidocaine 1% In Ns 8.4%) 0.25 ml IDERM ONETIME PRN PRN Reason: Prior to IV Start Stop: 10/24/19 18:00 Midazolam HCl (Versed 1 Mg/Ml) Confirm Administered Dose 2 mg .ROUTE .STK-MED ONE Stop: 10/24/19 05:45 Miscellaneous Medication (Phenylephrine 1 Mg/10 Ml-Ns) Confirm Administered Dose 1 mg IV .STK-MED ONE Stop: 10/24/19 05:44 Miscellaneous Medication (Phenylephrine 1 Mg/10 Ml-Ns) Confirm Administered Dose 1 mg IV .STK-MED ONE Stop: 10/24/19 07:54 Miscellaneous Medication (Phenylephrine 1 Mg/10 Ml-Ns) Confirm Administered Dose 1 mg IV .STK-MED ONE Stop: 10/24/19 09:03 Ondansetron HCl (Zofran) Confirm Administered Dose 4 mg .ROUTE .STK-MED ONE Stop: 10/24/19 05:44 Ondansetron HCl (Zofran) 4 mg IVPUSH ONETIME PRN PRN Reason: Nausea/Vomiting Stop: 10/24/19 12:00 Oxycodone HCl (Oxycodone) 10 mg PO ONETIME [facility] Stop: 06/25/20 12:00 Last Admin: 10/24/19 06:09 Dose: 10 mg Documented by: Pregabalin (Lyrica) 50 mg PO ONETIME [facility] Stop: 10/24/19 12:00 Last Admin: 10/24/19 06:10 Dose: 50 mg Documented by: Propofol (Diprivan 20 Ml) Confirm Administered Dose 400 mg .ROUTE .STK-MED ONE Stop: 10/24/19 05:44 Propofol (Diprivan 20 Ml) Confirm Administered Dose 200 mg .ROUTE .STK-MED ONE Stop: 10/24/19 07:55 Ropivacaine (Naropin 0.5%) Confirm Administered Dose 30 ml .ROUTE .STK-MED ONE Stop: 10/24/19 05:33 Sodium Chloride (Saline Flush) 10 ml FLUSH ASDIRECTED PRN PRN Reason: Keep Vein Open Stop: 10/24/19 18:00 Tranexamic Acid (Cyklokapron) Confirm Administered Dose 1,000 mg .ROUTE .STK-MED ONE Stop: 10/24/19 06:30 Last Admin: 10/24/19 08:21 Dose: 1,000 mg Documented by: Vancomycin HCl (Vancomycin) Confirm Administered Dose 1 gm .ROUTE .STK-MED ONE Stop: 10/24/19 06:31 Last Admin: 10/24/19 08:17 Dose: 1 gm Documented by: - Exam Quality Assessment: DVT Prophylaxis. No: Supplemental Oxygen General: Alert, Oriented, Cooperative, No Acute Distress HEENT: Pupils Equal, Pupils Reactive, Mucous Membr. Moist/[place]ck: Supple, Trachea Midline Lungs: Clear to Auscultation, Normal Respiratory Effort Cardiovascular: Regular Rate, Regular Rhythm GI/Abdominal Exam: Normal Bowel Sounds, Soft, Non-Tender, No Distention (Male) Exam: Deferred Back Exam: Normal Inspection, Full Range of Motion Extremities: Normal Capillary Refill, Leg Pain, Limited Range of Motion, Other (Bandage in palce on left leg. Cooling pack in place. ) Peripheral Pulses: 2+: Radial (L), Femoral (L), Dorsalis Pedis (L), Dorsalis Pedis (R) Skin: Warm, Dry, Intact Wound/Incisions: Dressing Dry and Intact Neurological: No New Focal Deficit Psy/Mental Status: Alert, Normal Affect, Normal Mood Sepsis Event Note - Evaluation Sepsis Screening Result: No Definite Risk - Focused Exam Date Exam was Performed: 10/25/19 Time Exam was Performed: 08:31 Consult PN Assessment/Plan POD#: 1 Procedures: Procedures ASSAY OF BLOOD OSMOLALITY (07/11/17) ASSAY OF LACTIC ACID (07/11/17) ASSAY OF MAGNESIUM (07/11/17) C DIFF AMPLIFIED PROBE (07/11/17) C-REACTIVE PROTEIN (07/11/17) COMPLETE CBC W/AUTO DIFF WBC (07/11/17) COMPREHEN METABOLIC PANEL (07/11/17) EMERGENCY DEPT VISIT (02/11/18) HYDRATE IV INFUSION ADD-ON (07/11/17) LEUKOCYTE ASSESSMENT FECAL (07/11/17) MR-STAPH DNA AMP PROBE (10/04/19) ROUTINE VENIPUNCTURE (07/11/17) STOOL CULTR AEROBIC BACT EA (07/11/17) TEST FOR ACETONE/KETONES (07/11/17) THER/PROPH/DIAG INJ SC/IM (02/11/18) THER/PROPH/DIAG IV INF INIT (07/11/17) TX/PRO/DX INJ NEW DRUG ADDON (07/11/17) TX/PRO/DX INJ SAME DRUG TAIL[employer] MEN'S READY TO WEAR (07/11/17) URINALYSIS AUTO W/SCOPE (07/11/17) (1) S/P total knee arthroplasty SNOMED Code(s): 1673258033486, 147800047, 4175583502696 Code(s): Z96.659 - PRESENCE OF UNSPECIFIED ARTIFICIAL KNEE JOINT Priority: High Current Visit: Yes Qualifiers: Laterality: left Qualified Code(s): Z96.652 - Presence of left artificial knee joint (2) Osteoarthritis SNOMED Code(s): 646065499 Code(s): M19.90 - UNSPECIFIED OSTEOARTHRITIS, UNSPECIFIED SITE Priority: High Current Visit: Yes Qualifiers: Osteoarthritis location: knee Osteoarthritis type: primary Laterality: left Qualified Code(s): M17.12 - Unilateral primary osteoarthritis, left knee (3) Asthma SNOMED Code(s): 388982991 Code(s): J45.909 - UNSPECIFIED ASTHMA, UNCOMPLICATED Priority: Medium Current Visit: No Qualifiers: Asthma severity: unspecified severity Asthma persistence: unspecified Asthma complication type: unspecified Qualified Code(s): J45.909 - Unspecified asthma, uncomplicated (4) HTN (hypertension) SNOMED Code(s): 01081959 Code(s): I10 - ESSENTIAL (PRIMARY) HYPERTENSION Priority: Medium Current Visit: No Qualifiers: Hypertension type: unspecified Qualified Code(s): I10 - Essential (primary) hypertension (5) Vertebrobasilar dolichoectasia SNOMED Code(s): 61684494 Code(s): I65.1 - OCCLUSION AND STENOSIS OF BASILAR ARTERY Priority: Low Current Visit: No (6) Depression SNOMED Code(s): 98447780 Code(s): F32.9 - MAJOR DEPRESSIVE DISORDER, SINGLE EPISODE, UNSPECIFIED Priority: Low Current Visit: No Qualifiers: Depression Type: other depression Qualified Code(s): F32.89 - Other specified depressive episodes (7) Anxiety SNOMED Code(s): 33095617 Code(s): F41.9 - ANXIETY DISORDER, UNSPECIFIED Priority: Low Current Visit: No (8) HLD (hyperlipidemia) SNOMED Code(s): 89329045 Code(s): E78.5 - HYPERLIPIDEMIA, UNSPECIFIED Priority: Low Current Visit: No Qualifiers: Hyperlipidemia type: unspecified Qualified Code(s): E78.5 - Hyperlipidemia, unspecified (9) PUD (peptic ulcer disease) SNOMED Code(s): 48107617 Code(s): K27.9 - PEPTIC ULC, SITE UNSP, UNSP AC OR CHR, W/O HEMOR OR PERF Priority: Low Current Visit: No (10) History of GI bleed SNOMED Code(s): 478609763 Code(s): Z87.19 - PERSONAL HISTORY OF OTHER DISEASES OF THE DIGESTIVE SYSTEM Priority: Low Current Visit: No (11) Chronic alcohol use SNOMED Code(s): 924283 Code(s): Z72.89 - OTHER PROBLEMS RELATED TO LIFESTYLE Priority: Medium Current Visit: No (12) Trigeminal neuralgia of left side of face SNOMED Code(s): 94316380 Code(s): G50.0 - TRIGEMINAL NEURALGIA Priority: Medium Current Visit: No (13) Chest pain SNOMED Code(s): 74563797 Code(s): R07.9 - CHEST PAIN, UNSPECIFIED Priority: High Current Visit: Yes Qualifiers: Chest pain type: unspecified Qualified Code(s): R07.9 - Chest pain, unspecified (14) Hx of opioid abuse SNOMED Code(s): 471834605 Code(s): F11.11 - OPIOID ABUSE, IN REMISSION Priority: High Current Visit: Yes Problem List Initiated/Reviewed/Updated: Yes My Orders Last 24 Hours: My Active Orders 10/24/19 14:00 Patient Status [ADT] Routine Plan: I/P: Acute: S/P left total knee arthroplasty - post-operative day 1 -DVT prophylaxis and pain management per primary care team -PT/OT -IS/RT -Monitor oxygen saturation -Titrate oxygen as needed -Home medications reviewed -Vital signs stable -Monitor labs -Pre-operative Hgb was 14.6; Now 11.9 -Pre-operative GFR was 78; Now >60 -Pre-operative BUN was 25; Now 13 -Pre-operative creatinine was 0.99; Now 1.0 -Pre-operative Hgb A1C was 5.1% -Pre-operative EKG shows a sinus bradycardia at 53 BPM -Pre-operative CXR showed nothing acute -Deemed moderate risk for total joint surgery by PCP Chest Pain, stable -Reports 4-09/07 chest pain -Troponin negative -12-lead EKG shows sinus arrhythmia at 54 BPM, No signs of ischemia -Likely muscular skeletal in nature -Continue to monitor Osteoarthritis of left knee -Pain management per primary care team Chronic: Asthma HTN Trigeminal neuralgia of the left side of the face Hx/o vertebrobasilar dolichoectasia depression anxiety HLD Hx/o GI Bleed PUD Chronic ETOH use History of opiate abuse Plan: CM for discharge planning GI prophylaxis Home medications as indicated Other orders as listed above Routine AM labs He is a full code. His PCP is Dr. Castillo. From a hospitalist standpoint Maik is doing well. He has been up ambulating and working with therapies. He is off of oxygen and has urinated. His pain is controlled for the most part, although he was reporting some pain yesterday evening. Primary team is aware of this and has been discussing this with him. His labs and vital signs remain stable. He is cleared for discharge pending primary team and PT/OT agreement. Thank you for allowing us to participate in the care of this patient!!
[2019-10-25] MEDS ORDERED: carBAMazepine 200 MG Tab PO SCH (08:00)
[2019-10-25] MEDS: Cholecalciferol (Vitamin D3) 5,000 UNIT Tab PO SCH (08:16)
[2019-10-25] MEDS: Docusate Sodium 100 MG Cap PO SCH (08:16)
[2019-10-25] MEDS ORDERED: Pantoprazole 40 MG Tab.CR PO SCH (09:00)
[2019-10-25] MEDS ORDERED: Multivitamins,Therapeutic Tab PO SCH (09:00)
[2019-10-25] MEDS ORDERED: Simvastatin 20 MG Tab PO SCH (09:00)
[2019-10-25] MEDS ORDERED: Lisinopril 20 MG Tab PO SCH (09:00)
[2019-10-25] MEDS ORDERED: Metoprolol Tartrate 50 MG Tab PO SCH (09:00)
[2019-10-25] MEDS ORDERED: amLODIPine 5 MG Tab PO SCH (09:00)
--- NOTE | 2019-10-25 10:19 | PCM48HPAN ---
Post Anesthesia Note - EVALUATION WITHIN 48HRS OF ANESTHETIC Vital Signs in Normal Range: Yes Patient Participated in Evaluation: Yes Respiratory Function Stable: Yes Airway Patent: Yes Cardiovascular Function Stable: Yes Hydration Status Stable: Yes Pain Control Satisfactory: Yes (complains of knee pain-) Nausea and Vomiting Control Satisfactory: Yes Mental Status Recovered: Yes Vital Signs: Last Vital Signs Temp 99.9 F 10/25/19 08:13 Pulse 79 10/25/19 08:15 Resp 12 10/25/19 08:13 BP 124/99 H 10/25/19 08:15 Pulse Ox 95 10/25/19 08:13
[2019-10-25] MEDS ORDERED: Ketorolac 15 MG/ML SDV IVPUSH PRN (13:00)
--- NOTE | 2019-10-25 17:54 | PCM.SURGPN ---
- General Info Date of Service: 10/25/19 POD#: 1 Functional Status: Reports: Pain Controlled, Tolerating Diet, Ambulating, Urinating, Incentive Spirometry, Other - Patient Data Vitals - Most Recent: Last Vital Signs Temp 99.9 F 10/25/19 08:13 Pulse 79 10/25/19 08:15 Resp 12 10/25/19 08:13 BP 124/99 H 10/25/19 08:15 Pulse Ox 95 10/25/19 08:13 Weight - Most Recent: 175 lb 3.2 oz I&O - Last 24 Hours: Intake & Output 10/25/19 10/25/19 10/25/19 06:59 14:59 22:59 Intake Total 624 240 Output Total 1500 Balance -876 240 Lab Results Last 24 Hrs: Laboratory Results - last 24 hr 10/25/19 10/25/19 Range/Units 05:10 05:10 WBC 8.91 (4.23-9.07) K/mm3 RBC 3.82 L (4.63-6.08) M/mm3 Hgb 11.9 L D (13.7-17.5) gm/dl Hct 35.8 L (40.1-51.0) % MCV 93.7 H D (79.0-92.2) fl MCH 31.2 (25.7-32.2) pg MCHC 33.2 (32.2-35.5) g/dl RDW Std Deviation 41.4 (35.1-43.9) fL Plt Count 263 (163-337) K/mm3 MPV 10.1 (9.4-12.3) fl Sodium 140 (136-145) mEq/L Potassium 4.1 (3.5-5.1) mEq/L Chloride 105 (98-107) mEq/L Carbon Dioxide 27 (21-32) mEq/L Anion Gap 12.1 (5-15) BUN 13 (7-18) mg/dL Creatinine 1.0 (0.7-1.3) mg/dL Est Cr Clr Drug Dosing 82.48 mL/min Estimated GFR (MDRD) > 60 (>60) mL/min BUN/Creatinine Ratio 13.0 L (14-18) Glucose 121 H (74-106) mg/dL Calcium 8.3 L (8.5-10.1) mg/dL Total Bilirubin 1.0 (0.2-1.0) mg/dL AST 52 H (15-37) U/L ALT 51 (16-63) U/L Alkaline Phosphatase 51 (46-116) U/L Total Protein 5.9 L (6.4-8.2) g/dl Albumin 3.2 L (3.4-5.0) g/dl Globulin 2.7 gm/dL Albumin/Globulin Ratio 1.2 (1-2) Med Orders - Current: Current Medications Discontinued Medications Acetaminophen (Tylenol) 975 mg PO NOW [facility] Stop: 10/24/19 12:00 Last Admin: 10/24/19 06:10 Dose: 975 mg Documented by: Albuterol (Proventil Neb Soln) 2.5 mg NEB ONETIME ONE Stop: 10/24/19 06:37 Last Admin: 10/24/19 06:46 Dose: 2.5 mg Documented by: Albuterol (Proventil Neb Soln) 2.5 mg NEB ONETIME PRN PRN Reason: bronchodilation Stop: 10/24/19 12:00 Amlodipine Besylate (Norvasc) 5 mg PO DAILY [facility] Last Admin: 10/25/19 08:15 Dose: 5 mg Documented by: Aspirin (Ecotrin) 325 mg PO BID [facility] Last Admin: 10/25/19 08:15 Dose: 325 mg Documented by: Bisacodyl (Dulcolax) 5 mg PO DAILY PRN PRN Reason: Constipation Bupivacaine HCl (Sensorcaine-Mpf 0.25%) Confirm Administered Dose 30 ml .ROUTE .STK-MED ONE Stop: 10/24/19 06:31 Last Admin: 10/24/19 08:12 Dose: 30 ml Documented by: Carbamazepine (Tegretol) 100 mg PO QPM [facility] Last Admin: 10/24/19 18:06 Dose: 100 mg Documented by: Carbamazepine (Tegretol) 100 mg PO QID PRN PRN Reason: trigeminal neuralgia Carbamazepine (Tegretol Tab) 200 mg PO QAM [facility] Last Admin: 10/25/19 08:16 Dose: 200 mg Documented by: Cefazolin Sodium (Ancef) Confirm Administered Dose 2 gm .ROUTE .STK-MED ONE Stop: 10/24/19 05:44 Cefazolin Sodium (Ancef) Confirm Administered Dose 2 gm .ROUTE .STK-MED ONE Stop: 10/24/19 06:31 Last Admin: 10/24/19 08:06 Dose: 2 gm Documented by: Cholecalciferol (Vitamin D3) 5,000 unit PO DAILY [facility] Last Admin: 10/25/19 08:16 Dose: 5,000 unit Documented by: Morphine Sulfate 8 mg/Epinephrine HCl 0.3 mg/Cefuroxime Sodium 750 mg/Ketorolac Tromethamine 30 mg/Sodium Chloride 7.9 ml 0 mg .XX ASDIRECTED PRN PRN Reason: Pain Stop: 10/24/19 12:00 Last Admin: 10/24/19 08:12 Dose: 788.3 mg Documented by: Cyclobenzaprine HCl (Flexeril) 10 mg PO TID PRN PRN Reason: Spasms Last Admin: 10/25/19 01:01 Dose: 10 mg Documented by: Diphenhydramine HCl (Benadryl) 25 mg IVPUSH Q6H PRN PRN Reason: pruritis Stop: 10/24/19 12:00 Docusate Sodium (Colace) 100 mg PO BID [facility] Last Admin: 10/25/19 08:16 Dose: 100 mg Documented by: Ephedrine Sulfate (Ephedrine Sulfate) 5 mg IVPUSH ASDIRECTED PRN PRN Reason: Hypotension Stop: 10/24/19 12:00 Epinephrine HCl (Adrenalin) Confirm Administered Dose 1 mg .ROUTE .STK-MED ONE Stop: 10/24/19 05:33 Famotidine (Pepcid) 20 mg PO Q12H [facility] Last Admin: 10/24/19 18:30 Dose: Not Given Documented by: Fentanyl (Sublimaze) Confirm Administered Dose 100 mcg .ROUTE .STK-MED ONE Stop: 10/24/19 05:45 Fentanyl (Sublimaze) 50 mcg IVPUSH Q5M PRN PRN Reason: Pain Stop: 10/24/19 12:00 Lactated Ringer's (Ringers, Lactated) 1,000 mls @ 125 mls/hr IV ASDIRECTED JOJO Stop: 10/24/19 23:00 Lidocaine HCl (Xylocaine-Mpf 1%) Confirm Administered Dose 6 mls @ as directed .ROUTE .STK-MED ONE Stop: 10/24/19 05:44 Lactated Ringer's (Ringers, Lactated) Confirm Administered Dose 2,000 mls @ as directed .ROUTE .STK-MED ONE Stop: 10/24/19 05:44 Cefazolin Sodium/Dextrose 2 gm (/ Premix) 50 mls @ 100 mls/hr IV Q8H [facility] Stop: 10/25/19 06:59 Last Admin: 10/25/19 06:17 Dose: 100 mls/hr Documented by: Phenylephrine HCl 1 mg/ Sodium (Chloride) 10.1 mls @ 1 mls/sec IV TITRATE JOJO; Protocol Stop: 10/24/19 12:00 Iodine (Iodine 2% Mild Tincture) Confirm Administered Dose 30 ml .ROUTE .STK-MED ONE Stop: 10/24/19 06:31 Last Admin: 10/24/19 08:04 Dose: 18 ml Documented by: Ketamine HCl (Ketalar) Confirm Administered Dose 500 mg .ROUTE .STK-MED ONE Stop: 10/24/19 05:45 Ketorolac Tromethamine (Toradol) Confirm Administered Dose 0 mg .ROUTE .STK-MED ONE Stop: 10/24/19 05:44 Ketorolac Tromethamine (Toradol) 15 mg IVPUSH Q6H PRN PRN Reason: Pain Last Admin: 10/25/19 07:11 Dose: 15 mg Documented by: Ketorolac Tromethamine (Toradol) 15 mg IVPUSH ONETIME PRN PRN Reason: Pain Lidocaine/Sodium Bicarbonate (Buffered Lidocaine 1% In Ns 8.4%) 0.25 ml IDERM ONETIME PRN PRN Reason: Prior to IV Start Stop: 10/24/19 18:00 Lisinopril (Prinivil) 20 mg PO DAILY [facility] Last Admin: 10/25/19 08:15 Dose: 20 mg Documented by: Magnesium Hydroxide (Milk Of Magnesia) 30 ml PO BID PRN PRN Reason: Constipation Metoprolol Tartrate (Lopressor) 50 mg PO BID [facility] Last Admin: 10/25/19 08:15 Dose: 50 mg Documented by: Midazolam HCl (Versed 1 Mg/Ml) Confirm Administered Dose 2 mg .ROUTE .STK-MED ONE Stop: 10/24/19 05:45 Miscellaneous Medication (Phenylephrine 1 Mg/10 Ml-Ns) Confirm Administered Dose 1 mg IV .STK-MED ONE Stop: 10/24/19 05:44 Miscellaneous Medication (Phenylephrine 1 Mg/10 Ml-Ns) Confirm Administered Dose 1 mg IV .STK-MED ONE Stop: 10/24/19 07:54 Miscellaneous Medication (Phenylephrine 1 Mg/10 Ml-Ns) Confirm Administered Dose 1 mg IV .STK-MED ONE Stop: 10/24/19 09:03 Morphine Sulfate (Morphine) 2 mg IVPUSH Q2H PRN PRN Reason: Breakthrough Pain Last Admin: 10/24/19 19:41 Dose: 2 mg Documented by: Multivitamins (Thera) 1 each PO DAILY [facility] Last Admin: 10/25/19 08:14 Dose: 1 each Documented by: Ondansetron HCl (Zofran) Confirm Administered Dose 4 mg .ROUTE .STK-MED ONE Stop: 10/24/19 05:44 Ondansetron HCl (Zofran) 4 mg IVPUSH Q6H PRN PRN Reason: Nausea/Vomiting Ondansetron HCl (Zofran) 4 mg IVPUSH ONETIME PRN PRN Reason: Nausea/Vomiting Stop: 10/24/19 12:00 Oxycodone HCl (Oxycodone) 10 mg PO ONETIME [facility] Stop: 10/24/19 12:00 Last Admin: 10/24/19 06:09 Dose: 10 mg Documented by: Oxycodone HCl (Oxycodone) 5 mg PO Q6H PRN PRN Reason: Pain Last Admin: 10/25/19 08:16 Dose: 5 mg Documented by: Oxycodone/Acetaminophen (Percocet 325-5 Mg) 1 - 2 tab PO Q4H PRN PRN Reason: Pain Last Admin: 10/25/19 06:14 Dose: 2 tab Documented by: Pantoprazole Sodium (Protonix) 40 mg PO DAILY [facility] Last Admin: 10/25/19 08:16 Dose: 40 mg Documented by: Pregabalin (Lyrica) 50 mg PO ONETIME [facility] Stop: 10/24/19 12:00 Last Admin: 10/24/19 06:10 Dose: 50 mg Documented by: Propofol (Diprivan 20 Ml) Confirm Administered Dose 400 mg .ROUTE .STK-MED ONE Stop: 10/24/19 05:44 Propofol (Diprivan 20 Ml) Confirm Administered Dose 200 mg .ROUTE .STK-MED ONE Stop: 10/24/19 07:55 Ropivacaine (Naropin 0.5%) Confirm Administered Dose 30 ml .ROUTE .STK-MED ONE Stop: 10/24/19 05:33 Senna (Senna) 8.6 mg PO BID PRN PRN Reason: Constipation Sertraline HCl (Zoloft) 200 mg PO BEDTIME [facility] Last Admin: 10/24/19 20:59 Dose: 200 mg Documented by: Simvastatin (Zocor) 20 mg PO DAILY [facility] Last Admin: 10/25/19 08:15 Dose: 20 mg Documented by: Sodium Chloride (Saline Flush) 10 ml FLUSH ASDIRECTED PRN PRN Reason: Keep Vein Open Stop: 10/24/19 18:00 Tranexamic Acid (Cyklokapron) Confirm Administered Dose 1,000 mg .ROUTE .STK-MED ONE Stop: 10/24/19 06:30 Last Admin: 10/24/19 08:21 Dose: 1,000 mg Documented by: Vancomycin HCl (Vancomycin) Confirm Administered Dose 1 gm .ROUTE .STK-MED ONE Stop: 10/24/19 06:31 Last Admin: 10/24/19 08:17 Dose: 1 gm Documented by: - Exam Wound/Incisions: Dressing Dry and Intact General: Alert, Cooperative, No Acute Distress Lungs: Normal Respiratory Effort Extremities: Other (NVS intact for LLE. Abhijit's negative.) Sepsis Event Note - Evaluation Sepsis Screening Result: No Definite Risk - Focused Exam Vital Signs: Vital Signs Temp Pulse Resp BP Pulse Ox 10/25/19 08:15 79 124/99 H 10/25/19 08:13 99.9 F 79 12 124/99 H 95 10/25/19 06:13 98.2 F 61 20 135/71 93 L Date Exam was Performed: 10/25/19 Time Exam was Performed: 17:52 - Problem List Review Problem List Initiated/Reviewed/Updated: Yes - Assessment Assessment (Free Text/Narrative):: POD#1 - left TKA - Plan Plan (Free Text/Narrative):: 1. Will try 1 to 3 tab oxycodone for pain management. 2. 325mg ASA PO BID, frequent mobility, TEDs. 3. Discharge to home today. 4. Outpatient therapy. The pt's case was discussed with Dr. Donovan.
--- NOTE | 2019-10-28 16:26 | PCM.DCSUM1 ---
Discharge Summary - Hospital Course Brief History: Arturo is a 54 yo male who underwent left TKA with Dr. Donovan on 10-24-2019. The procedure was completed under spinal anesthesia with sedation. The pt tolerated the procedure well and was admitted to the Medical-Surgical Unit. Medical management was provided by the Hospitalist service. The pt's Hospital course was remarkable for chest pain which was evaluated by the Hospitalist service and for difficulty obtaining adequate pain control initially. The pt's Hgb on POD#1 was 11.9. On POD#1, 325mg ASA BID was initiated for VTE prophylaxis. SCDs and TEDs were also ordered. A Mepilex dressing was placed at the incision site at the time of surgery and remained tim an and dry. The pt participated in P.T. and O.T. and progressed well. The pt was allowed to WBAT. On POD#1, the pt was deemed appropriate to discharge to home with his . - Discharge Data Discharge Date: 10/25/19 Discharge Disposition: Home, Self-Care 01 Condition: Good - Referral to Home Health Primary Care Physician: Vazquez Castillo MD - Patient Summary/Data Operative Procedure(s) Performed: left total knee arthroplasty Consults: Consultations 10/24/19 06:04 OT Evaluation and Treatment [CONS] Routine PT Evaluation and Treatment [CONS] Routine 10/24/19 06:05 Consult to Physician [CONS] Routine - Patient Instructions Diet: Usual Diet as Tolerated Activity: Apply Ice, As Tolerated, Elevate Extremity, Full Weight Bearing Driving: Do Not Drive Showering/Bathing: May Shower Wound/Incision Care: Keep Operative Site/Wound Site Clean and Dry, Do NOT Change Dressing Notify Provider of: Fever, Increased Pain, Swelling and Redness, Drainage, Nausea and/or Vomiting Other/Special Instructions: Please get up and moving around EVERY HOUR while awake. This helps to prevent blood clots. Please use your walker and have help with mobility as needed. Take a short walk in your home every hour while awake. Please take 325mg aspirin TWICE daily. The aspirin is being used for blood clot prevention and not for pain management so please do not miss a dose of the medication. You could use a medication like Pepcid or Tagamet to protect your stomach while you are using the aspirin. Continue to use Nexium. Nexium is to be used twice daily while you are using aspirin twice daily. At home, please complete the exercises that you learned during the Hospital stay. Schedule for physical therapy. Use the pain medication as needed. The medication may cause drowsiness and constipation. Contact your primary care provider for instructions if you are constipated. You may use a stool softener like docusate sodium or Colace 100mg twice daily and/or a laxative like Miralax daily for constipation. Increase your water and fiber intake while you are using the pain medication. Discontinue use of the pain medication as soon as able. Please do not use other medications that may cause drowsiness (other pain medications, anxiety pills, cold medications, sleeping pills, etc) while using the prescription pain medication. Do not use alcohol while using the pain medication. You may use acetaminophen or Tylenol for pain management, however, please ensure you are not using over 4000 mg or 4 grams of acetaminophen per day from all sources. At this time, please do not use ibuprofen (Motrin, Advil) or naproxen (Aleve) for pain management as you are using the aspirin. When the aspirin course is completed in 4 to 6 weeks, you could use ibuprofen or naproxen for pain management (if this is allowed by your primary care provider). Wear the MELISSA hose during the day and you may remove these at night. Elevate the limb to decrease swelling. Place ice to the area often. Place a towel between your skin and the blue pad. Use the incentive spirometer often. Take deep breaths throughout the day. Please keep the dressing in place until follow-up. Notify the Clinic if the dressing becomes saturated. Increase your protein intake while you are healing. If you have diabetes, please closely monitor your blood sugars and notify your primary care provider with abnormal values. Elevated b lood sugars increases the risk of infection. Call the Clinic with questions or concerns - [phone] and leave a message for the nurse. - Discharge Plan *PRESCRIPTION DRUG MONITORING PROGRAM REVIEWED*: No *COPY OF PRESCRIPTION DRUG MONITORING REPORT IN PATIENT BABITA: No Prescriptions/Med Rec: Aspirin [Ecotrin EC] 325 mg PO BID #84 tab.ec Cyclobenzaprine [Flexeril] 10 mg PO BID PRN #20 tablet PRN Reason: Spasms oxyCODONE 5 - 15 mg PO Q6H PRN #60 tablet PRN Reason: Pain Home Medications: Home Meds Acetaminophen [Tylenol Extra Strength] 1,000 mg PO Q6H PRN 10/23/19 [History] Cholecalciferol (Vitamin D3) [Vitamin D3] 5,000 unit PO DAILY 10/23/19 [History] Esomeprazole Magnesium 40 mg PO DAILY 10/23/19 [History] Eszopiclone 3 mg PO BEDTIME PRN 10/23/19 [History] Metoprolol Tartrate 50 mg PO BID 10/23/19 [History] Multivitamin [Daily Multiple Vitamin] 1 tab PO DAILY 10/23/19 [History] Quinapril HCl 40 mg PO DAILY 10/23/19 [History] Sertraline HCl 200 mg PO BEDTIME 10/23/19 [History] amLODIPine Besylate [Amlodipine Besylate] 5 mg PO DAILY 10/23/19 [History] atorvaSTATin Calcium [Atorvastatin Calcium] 20 mg PO DAILY 10/23/19 [History] carBAMazepine [Carbamazepine ER] 100 mg PO QAM 10/23/19 [History] carBAMazepine [Carbamazepine ER] 100 mg PO QPM 10/23/19 [History] carBAMazepine [TEGretol XR] 100 mg PO QID PRN 10/23/19 [History] hydroCHLOROthiazide [Hydrochlorothiazide] 25 mg PO DAILY 10/23/19 [History] Aspirin [Ecotrin EC] 325 mg PO BID #84 tab.ec 10/25/19 [Rx] Cyclobenzaprine [Flexeril] 10 mg PO BID PRN #20 tablet 10/25/19 [Rx] Docusate Sodium [Colace] 100 mg PO BID cap 10/25/19 [Rx] Magnesium Hydroxide [Milk of Magnesia] 30 ml PO BID PRN cup 10/25/19 [Rx] Sennosides [Senna] 8.6 mg PO BID PRN tablet 10/25/19 [Rx] bisacodyL [Dulcolax] 5 mg PO DAILY PRN tablet 10/25/19 [Rx] oxyCODONE 5 - 15 mg PO Q6H PRN #60 tablet 10/25/19 [Rx] Referrals: Nguyen Blanco PA-C [Physician Director Nicu] - (You have 3 follow ups with Nguyen Blanco and they are as follows: 10/30/19-1215pm 11/08/19 at 1000am 12/10/19 at 1030am You also have and apt. with PT-ReeAnn Mehus on 10/30/19 at 0100pm ) - Discharge Summary/Plan Comment DC Time >30 min.: No - Patient Data Vitals - Most Recent: Last Vital Signs Temp 99.9 F 10/25/19 08:13 Pulse 79 10/25/19 08:15 Resp 12 10/25/19 08:13 BP 124/99 H 10/25/19 08:15 Pulse Ox 95 10/25/19 08:13 Weight - Most Recent: 175 lb 3.2 oz Med Orders - Current: Current Medications Discontinued Medications Acetaminophen (Tylenol) 975 mg PO NOW [facility] Stop: 10/24/19 12:00 Last Admin: 10/24/19 06:10 Dose: 975 mg Documented by: Albuterol (Proventil Neb Soln) 2.5 mg NEB ONETIME ONE Stop: 10/24/19 06:37 Last Admin: 10/24/19 06:46 Dose: 2.5 mg Documented by: Albuterol (Proventil Neb Soln) 2.5 mg NEB ONETIME PRN PRN Reason: bronchodilation Stop: 10/24/19 12:00 Amlodipine Besylate (Norvasc) 5 mg PO DAILY [facility] Last Admin: 10/25/19 08:15 Dose: 5 mg Documented by: Aspirin (Ecotrin) 325 mg PO BID [facility] Last Admin: 10/25/19 08:15 Dose: 325 mg Documented by: Bisacodyl (Dulcolax) 5 mg PO DAILY PRN PRN Reason: Constipation Bupivacaine HCl (Sensorcaine-Mpf 0.25%) Confirm Administered Dose 30 ml .ROUTE .STK-MED ONE Stop: 10/24/19 06:31 Last Admin: 10/24/19 08:12 Dose: 30 ml Documented by: Carbamazepine (Tegretol) 100 mg PO QPM [facility] Last Admin: 10/24/19 18:06 Dose: 100 mg Documented by: Carbamazepine (Tegretol) 100 mg PO QID PRN PRN Reason: trigeminal neuralgia Carbamazepine (Tegretol Tab) 200 mg PO QAM [facility] Last Admin: 10/25/19 08:16 Dose: 200 mg Documented by: Cefazolin Sodium (Ancef) Confirm Administered Dose 2 gm .ROUTE .STK-MED ONE Stop: 10/24/19 05:44 Cefazolin Sodium (Ancef) Confirm Administered Dose 2 gm .ROUTE .STK-MED ONE Stop: 10/24/19 06:31 Last Admin: 10/24/19 08:06 Dose: 2 gm Documented by: Cholecalciferol (Vitamin D3) 5,000 unit PO DAILY [facility] Last Admin: 10/25/19 08:16 Dose: 5,000 unit Documented by: Morphine Sulfate 8 mg/Epinephrine HCl 0.3 mg/Cefuroxime Sodium 750 mg/Ketorolac Tromethamine 30 mg/Sodium Chloride 7.9 ml 0 mg .XX ASDIRECTED PRN PRN Reason: Pain Stop: 10/24/19 12:00 Last Admin: 10/24/19 08:12 Dose: 788.3 mg Documented by: Cyclobenzaprine HCl (Flexeril) 10 mg PO TID PRN PRN Reason: Spasms Last Admin: 10/25/19 01:01 Dose: 10 mg Documented by: Diphenhydramine HCl (Benadryl) 25 mg IVPUSH Q6H PRN PRN Reason: pruritis Stop: 10/24/19 12:00 Docusate Sodium (Colace) 100 mg PO BID [facility] Last Admin: 10/25/19 08:16 Dose: 100 mg Documented by: Ephedrine Sulfate (Ephedrine Sulfate) 5 mg IVPUSH ASDIRECTED PRN PRN Reason: Hypotension Stop: 10/24/19 12:00 Epinephrine HCl (Adrenalin) Confirm Administered Dose 1 mg .ROUTE .STK-MED ONE Stop: 10/24/19 05:33 Famotidine (Pepcid) 20 mg PO Q12H [facility] Last Admin: 10/24/19 18:30 Dose: Not Given Documented by: Fentanyl (Sublimaze) Confirm Administered Dose 100 mcg .ROUTE .STK-MED ONE Stop: 10/24/19 05:45 Fentanyl (Sublimaze) 50 mcg IVPUSH Q5M PRN PRN Reason: Pain Stop: 10/24/19 12:00 Lactated Ringer's (Ringers, Lactated) 1,000 mls @ 125 mls/hr IV ASDIRECTED JOJO Stop: 10/24/19 23:00 Lidocaine HCl (Xylocaine-Mpf 1%) Confirm Administered Dose 6 mls @ as directed .ROUTE .STK-MED ONE Stop: 10/24/19 05:44 Lactated Ringer's (Ringers, Lactated) Confirm Administered Dose 2,000 mls @ as directed .ROUTE .STK-MED ONE Stop: 10/24/19 05:44 Cefazolin Sodium/Dextrose 2 gm (/ Premix) 50 mls @ 100 mls/hr IV Q8H [facility] Stop: 10/25/19 06:59 Last Admin: 10/25/19 06:17 Dose: 100 mls/hr Documented by: Phenylephrine HCl 1 mg/ Sodium (Chloride) 10.1 mls @ 1 mls/sec IV TITRATE JOJO; Protocol Stop: 10/24/19 12:00 Iodine (Iodine 2% Mild Tincture) Confirm Administered Dose 30 ml .ROUTE .STK-MED ONE Stop: 10/24/19 06:31 Last Admin: 10/24/19 08:04 Dose: 18 ml Documented by: Ketamine HCl (Ketalar) Confirm Administered Dose 500 mg .ROUTE .STK-MED ONE Stop: 10/24/19 05:45 Ketorolac Tromethamine (Toradol) Confirm Administered Dose 0 mg .ROUTE .STK-MED ONE Stop: 10/24/19 05:44 Ketorolac Tromethamine (Toradol) 15 mg IVPUSH Q6H PRN PRN Reason: Pain Last Admin: 10/25/19 07:11 Dose: 15 mg Documented by: Ketorolac Tromethamine (Toradol) 15 mg IVPUSH ONETIME PRN PRN Reason: Pain Lidocaine/Sodium Bicarbonate (Buffered Lidocaine 1% In Ns 8.4%) 0.25 ml IDERM ONETIME PRN PRN Reason: Prior to IV Start Stop: 10/24/19 18:00 Lisinopril (Prinivil) 20 mg PO DAILY [facility] Last Admin: 10/25/19 08:15 Dose: 20 mg Documented by: Magnesium Hydroxide (Milk Of Magnesia) 30 ml PO BID PRN PRN Reason: Constipation Metoprolol Tartrate (Lopressor) 50 mg PO BID [facility] Last Admin: 10/25/19 08:15 Dose: 50 mg Documented by: Midazolam HCl (Versed 1 Mg/Ml) Confirm Administered Dose 2 mg .ROUTE .STK-MED ONE Stop: 10/24/19 05:45 Miscellaneous Medication (Phenylephrine 1 Mg/10 Ml-Ns) Confirm Administered Dose 1 mg IV .STK-MED ONE Stop: 10/24/19 05:44 Miscellaneous Medication (Phenylephrine 1 Mg/10 Ml-Ns) Confirm Administered Dose 1 mg IV .STK-MED ONE Stop: 10/24/19 07:54 Miscellaneous Medication (Phenylephrine 1 Mg/10 Ml-Ns) Confirm Administered Dose 1 mg IV .STK-MED ONE Stop: 10/24/19 09:03 Morphine Sulfate (Morphine) 2 mg IVPUSH Q2H PRN PRN Reason: Breakthrough Pain Last Admin: 10/24/19 19:41 Dose: 2 mg Documented by: Multivitamins (Thera) 1 each PO DAILY [facility] Last Admin: 10/25/19 08:14 Dose: 1 each Documented by: Ondansetron HCl (Zofran) Confirm Administered Dose 4 mg .ROUTE .STK-MED ONE Stop: 10/24/19 05:44 Ondansetron HCl (Zofran) 4 mg IVPUSH Q6H PRN PRN Reason: Nausea/Vomiting Ondansetron HCl (Zofran) 4 mg IVPUSH ONETIME PRN PRN Reason: Nausea/Vomiting Stop: 10/24/19 12:00 Oxycodone HCl (Oxycodone) 10 mg PO ONETIME JOJO Stop: 10/24/19 12:00 Last Admin: 10/24/19 06:09 Dose: 10 mg Documented by: Oxycodone HCl (Oxycodone) 5 mg PO Q6H PRN PRN Reason: Pain Last Admin: 10/25/19 08:16 Dose: 5 mg Documented by: Oxycodone/Acetaminophen (Percocet 325-5 Mg) 1 - 2 tab PO Q4H PRN PRN Reason: Pain Last Admin: 10/25/19 06:14 Dose: 2 tab Documented by: Pantoprazole Sodium (Protonix) 40 mg PO DAILY [facility] Last Admin: 10/25/19 08:16 Dose: 40 mg Documented by: Pregabalin (Lyrica) 50 mg PO ONETIME [facility] Stop: 10/24/19 12:00 Last Admin: 10/24/19 06:10 Dose: 50 mg Documented by: Propofol (Diprivan 20 Ml) Confirm Administered Dose 400 mg .ROUTE .STK-MED ONE Stop: 10/24/19 05:44 Propofol (Diprivan 20 Ml) Confirm Administered Dose 200 mg .ROUTE .STK-MED ONE Stop: 10/24/19 07:55 Ropivacaine (Naropin 0.5%) Confirm Administered Dose 30 ml .ROUTE .STK-MED ONE Stop: 10/24/19 05:33 Senna (Senna) 8.6 mg PO BID PRN PRN Reason: Constipation Sertraline HCl (Zoloft) 200 mg PO BEDTIME [facility] Last Admin: 10/24/19 20:59 Dose: 200 mg Documented by: Simvastatin (Zocor) 20 mg PO DAILY [facility] Last Admin: 10/25/19 08:15 Dose: 20 mg Documented by: Sodium Chloride (Saline Flush) 10 ml FLUSH ASDIRECTED PRN PRN Reason: Keep Vein Open Stop: 10/24/19 18:00 Tranexamic Acid (Cyklokapron) Confirm Administered Dose 1,000 mg .ROUTE .STK-MED ONE Stop: 10/24/19 06:30 Last Admin: 10/24/19 08:21 Dose: 1,000 mg Documented by: Vancomycin HCl (Vancomycin) Confirm Administered Dose 1 gm .ROUTE .STK-MED ONE Stop: 10/24/19 06:31 Last Admin: 10/24/19 08:17 Dose: 1 gm Documented by:
--- NOTE | 2019-10-31 09:17 | OR ---
DATE OF OPERATION: 10/24/2019 SURGEON: Ramirez Donovan MD OPERATION PERFORMED: Left total knee arthroplasty. PREOPERATIVE DIAGNOSIS: Left knee osteoarthrosis. POSTOPERATIVE DIAGNOSIS: Left knee osteoarthrosis. ANESTHESIA: Local MAC with spinal. ANESTHESIA PROVIDER: Lucía Gates CRNA ASSISTANTS: Nguyen Blanco PA-C; and Christine Pete LPN. ESTIMATED BLOOD LOSS: 550 mL. COMPLICATIONS: None. CONDITION: Stable. IMPLANTS: 1. [place] size 6 press-fit CR femur. 2. Dianelys size 6 press-fit tibial base plate. 3. [place] size 6 9 mm CS polyethylene insert. 4. [place] size 35 x 10 mm press fit asymmetric patella. DESCRIPTION OF PROCEDURE: The patient was identified in the preop holding area. Proper site was marked and identified by the surgeon. The patient was taken back to the operating theater. After adequate anesthesia, the patient's left lower extremity had a nonsterile tourniquet applied and it was sterilely prepped and draped in the usual sterile fashion. OR time-out was performed. The patient received 2 g IV Ancef. At this time, the left lower extremity was exsanguinated. Tourniquet was insufflated to 300 mmHg. Standard medial parapatellar incision was made. Medial parapatellar arthrotomy was created. Deep fibers of the MCL were raised and anterior fat pad was resected. At this time, attention was turned to the patella. Patella measured 25, it was resected to a 15 for a 35 x 10 mm patella. Drill holes were then drilled and found to be in adequate position. The drill was then drilled in the distal femur and the intramedullary distal femoral cutting guide was then placed. 8 mm was resected off the distal femur and was found to be an adequate resection. Sizing guide was placed. It was found to be a size 6 press-fit CR femur that was shown on the implant record at the beginning of this dictation. The drill holes were drilled for the epicondylar axis using Whitesides line and epicondyles as reference. At this time, the 4-in- 1 cutting block was placed. An anterior posterior and anterior and posterior chamfer cuts were then completed. Attention was turned to the tibia. The posterior medial lateral retractors were placed. The extramedullary tibial guide was placed. It was placed in the old footprint of the ACL. It was aligned with the center of the ankle and 0 degrees of slope, 9 mm was then resected off the unaffected side. There was found to be an acceptable reduction. At this time, posterior osteophytes were removed along with medial and lateral meniscus. A trial implant was placed with a correct sized tibia that was mentioned at the beginning of the dictation. A Dianelys size 6 9 mm CS polyethylene insert was then placed. The patient's knee was brought through range of motion. The patella was tracking centrally and was stable to varus and valgus stress. Alignment was found to be roughly at 0 degrees. The tibia was stamped and drilled in proper rotation. The universal tibial base plate was impacted in place. Next, the Dianelys size 6 press-fit CR femur impacted into place and the [place] size 6 9 mm CS polyethylene insert was placed. The patient's knee was brought into full extension. The patella was then press-fit in place at this time. Tourniquet was deflated. One liter dilute Betadine solution was irrigated through the knee along with 3 L of pulse lavage irrigation with Ancef. Periarticular injection was then completed. The patient's knee was brought through a range of motion. Knee was found to be stable to varus valgus stress, the patella was tracking centrally with full range of motion. At this time, a #2 barbed suture was used for closure of the medial parapatellar arthrotomy. Topical tranexamic acid was placed. 2-0 Vicryl was used subcutaneously, Prineo was used for the skin. The patient tolerated the procedure well and was sent to the PACU in stable condition. RADHA /[id number] GIOVANNI
== END 2019-10-25 11:10 | disposition home or self-care (01) | DRG 302 ==
LOC: JD.SDS 05:52 → JD.MS 05:53 → JD.SDS 08:38
PROVIDERS: ADMIT Orthopaedic Surgery; ATTEND Orthopaedic Surgery
PROC: 0SRD0JA Replacement of Left Knee Joint with Synthetic Substitute, Uncemented, Open Approach (ICD-10-PCS; principal; 2019-10-24)
DX: M17.12 Unilateral primary osteoarthritis, left knee (principal); J45.909 Unspecified asthma, uncomplicated; I10 Essential (primary) hypertension; G50.0 Trigeminal neuralgia; F32.9 Major depressive disorder, single episode, unspecified; F41.9 Anxiety disorder, unspecified; E78.5 Hyperlipidemia, unspecified; H54.7 Unspecified visual loss; E78.00 Pure hypercholesterolemia, unspecified; M19.90 Unspecified osteoarthritis, unspecified site; G47.00 Insomnia, unspecified; I65.1 Occlusion and stenosis of basilar artery; F11.10 Opioid abuse, uncomplicated; Z87.19 Personal history of other diseases of the digestive system; Z87.11 Personal history of peptic ulcer disease; Z91.030 Bee allergy status; Z79.82 Long term (current) use of aspirin; Z79.899 Other long term (current) drug therapy; Z72.89 Other problems related to lifestyle; Z20.828 Contact with and (suspected) exposure to other viral communicable diseases
CPT/HCPCS: 01402; 36415; 64450; 73560-26-LT; 73560-LT; 80053; 84484; 85027; 93005; 94640; 97110-GP; 97116-GP; 97162-GP; 99221; 99231; A9270-GY; C1776; J0171; J0690; J0697; J1885; J2001; J2250; J2270; J2370; J2405; J2704; J2795; J3010; J3370; J3490; J7120; U0002

== ENCOUNTER 2020-01-20 07:36 | Day surgery (SDC) | payer BC ==
--- NOTE | 2020-01-17 10:35 | PCM.PREANE ---
Preanesthetic Assessment - Procedure Proposed Procedure: Right Total Knee Arthroplasty - Anesthesia/Transfusion/Family Hx Anesthesia History: Prior Anesthesia Without Reaction Family History of Anesthesia Reaction: No Transfusion History: Prior Transfusion Without Reaction Intubation History: Unknown - Review of Systems Pulmonary: No Symptoms (ETOH: occasionally, Asthma) Cardiovascular: No Symptoms (History of HTN) Gastrointestinal: No Symptoms (History of GI bleed which required blood transfusion/GERD) Neurological: Numbness (Left side of face: Trigeminal Neuralgia/ Vetebrobasiliar Dolichoectasia) Other: Reports: Depression, Anxiety (History of Mood Disorder) - Physical Assessment NPO Status Date: 01/19/20 Vital Signs: HR: Sat: Temp: Resp: B/P: Height: 1.75 m ASA Class: 2 Mental Status: Alert & Oriented x3 Airway Class: Mallampati = 2 Dentition: Reports: Normal Dentition, Caries Thyro-Mental Finger Breadths: 3 Mouth Opening Finger Breadths: 3 ROM/Head Extension: Full - Lab Values: Laboratory Last Values MRSA (PCR) Negative 01/08/20 13:21 All labs reviewed and noted and within acceptable ranges to proceed with scheduled procedure. - Imaging/EKG Impressions: CXR: negative EKG: SR rate=59, consider left ventricular hypertrophy - Allergies Allergies/Adverse Reactions: Allergies Allergy/AdvReac Type Severity Reaction Status Date / Time bee pollen Allergy Anaphylactic Verified 10/23/19 15:19 Shock - Anesthesia Plan Pre-Op Medication Ordered: Beta Clifford, Other (PRE-OP meds: lyrica, tylenol, oxycodone all p.o. @) Beta Clifford: Metoprolol Med Last Dose Date: 01/20/20 - Acknowledgements Anesthesia Type Planned: Spinal (Right adductor canal block under US guidance for post operative pain control requested by Dr. Donovan.) Pt an Appropriate Candidate for the Planned Anesthesia: Yes Alternatives and Risks of Anesthesia Discussed w Pt/Guardian: Yes Pt/Guardian Understands and Agrees with Anesthesia Plan: Yes PreAnesthesia Questionnaire HEENT History: Reports: Impaired Vision Other HEENT History: Wears glasses Cardiovascular History: Reports: High Cholesterol, Hypertension Respiratory History: Reports: Asthma Gastrointestinal History: Reports: GI Bleed, PUD Genitourinary History: Reports: None [employer] History: Reports: None Musculoskeletal History: Reports: Osteoarthritis, Other (See Below) Other Musculoskeletal History: joint pain Neurological History: Reports: Other (See Below) Other Neuro History: trigeminal neuralgia, vertebrobasilar dolichoectasia, percutaneous balloon compression procedure done for trigeminal neuralgia Psychiatric History: Reports: Depression Other Psychiatric History: insomnia, ETOH abx Endocrine/Metabolic History: Reports: None Hematologic History: Reports: Blood Transfusion(s) Immunologic History: Reports: None Oncologic (Cancer) History: Reports: None - Infectious Disease History Infectious Disease History: Reports: Chicken Pox - Past Surgical History Respiratory Surgical History: Reports: None GI Surgical History: Reports: Colonoscopy, EGD Female Surgical History: Reports: Breast Implant Male Surgical History: Reports: None Endocrine Surgical History: Reports: None Neurological Surgical History: Reports: None Musculoskeletal Surgical History: Reports: Arthroscopic Knee, Arthroscopic Procedure, Shoulder Replacement Oncologic Surgical History: Reports: None Dermatological Surgical History: Reports: Other (See Below) - HOME MEDS Home Medications: Home Meds Acetaminophen [Tylenol Extra Strength] 1,000 mg PO Q6H PRN 10/23/19 [History] Cholecalciferol (Vitamin D3) [Vitamin D3] 5,000 unit PO DAILY 10/23/19 [History] Esomeprazole Magnesium 40 mg PO DAILY 10/23/19 [History] Eszopiclone 3 mg PO BEDTIME PRN 10/23/19 [History] Metoprolol Tartrate 50 mg PO BID 10/23/19 [History] Multivitamin [Daily Multiple Vitamin] 1 tab PO DAILY 10/23/19 [History] Quinapril HCl 40 mg PO DAILY 10/23/19 [History] Sertraline HCl 200 mg PO BEDTIME 10/23/19 [History] amLODIPine Besylate [Amlodipine Besylate] 5 mg PO DAILY 10/23/19 [History] atorvaSTATin Calcium [Atorvastatin Calcium] 20 mg PO DAILY 10/23/19 [History] carBAMazepine [Carbamazepine ER] 100 mg PO QAM 10/23/19 [History] carBAMazepine [Carbamazepine ER] 100 mg PO QPM 10/23/19 [History] carBAMazepine [TEGretol XR] 100 mg PO QID PRN 10/23/19 [History] hydroCHLOROthiazide [Hydrochlorothiazide] 25 mg PO DAILY 10/23/19 [History] Aspirin [Ecotrin EC] 325 mg PO BID #84 tab.ec 10/25/19 [Rx] Cyclobenzaprine [Flexeril] 10 mg PO BID PRN #20 tablet 10/25/19 [Rx] Docusate Sodium [Colace] 100 mg PO BID cap 10/25/19 [Rx] Magnesium Hydroxide [Milk of Magnesia] 30 ml PO BID PRN cup 10/25/19 [Rx] Sennosides [Senna] 8.6 mg PO BID PRN tablet 10/25/19 [Rx] bisacodyL [Dulcolax] 5 mg PO DAILY PRN tablet 10/25/19 [Rx] oxyCODONE 5 - 15 mg PO Q6H PRN #60 tablet 10/25/19 [Rx] - CURRENT (IN HOUSE) MEDS Current Meds: Current Medications Lactated Ringer's (Ringers, Lactated) 1,000 mls @ 125 mls/hr IV ASDIRECTED JOJO Stop: 01/20/20 23:00 Lidocaine/Sodium Bicarbonate (Buffered Lidocaine 1% In Ns 8.4%) 0.25 ml IDERM ONETIME PRN PRN Reason: Prior to IV Start Stop: 01/20/20 18:00 Sodium Chloride (Saline Flush) 10 ml FLUSH ASDIRECTED PRN PRN Reason: Keep Vein Open Stop: 01/20/20 18:00
[~2020-01-20 07:36] MED LIST changes: +Acetaminophen 325 MG Tab PO SCH; -Ketamine 500 mg/10 ML MDV ONE; -Ketorolac 30 MG/ML SDV ONE; -Lactated Ringers 1,000 ML IV SCH; -Lactated Ringers 2,000 ML ONE; -Lidocaine 1% 6 ML ONE; -Midazolam 1 MG/ML 2 ML SDV ONE; +Morphine 2 MG/ML SYRINGE IVPUSH PRN; +Morphine 8 MG, EPINEPHrine 0.3 MG, Cefuroxime 750 MG, Ketorolac 30 MG, Sodium Chloride ... PRN; +Naloxone 0.4 MG/ML SDV IVPUSH PRN; +Ondansetron 4 MG/2 ML SDV IVPUSH PRN; -Ondansetron 4 MG/2 ML SDV ONE; +Pregabalin 25 MG Cap PO SCH; -Propofol 200 MG/20 ML SDV ONE; -ceFAZolin 1 GM Vial ONE; -fentaNYL 100 MCG/2 ML SDV ONE; +oxyCODONE 5 MG Tab PO PRN; +oxyCODONE ER 10 MG TAB.ER PO SCH
[2020-01-20] MEDS ORDERED: Propofol 200 MG/20 ML SDV ONE ×3 (07:41→10:13)
[2020-01-20] MEDS ORDERED: Midazolam 1 MG/ML 2 ML SDV ONE (07:41)
[2020-01-20] MEDS ORDERED: fentaNYL 100 MCG/2 ML SDV ONE ×2 (07:41→08:47)
[2020-01-20] MEDS ORDERED: Ketorolac 30 MG/ML SDV ONE (07:41)
[2020-01-20] MEDS ORDERED: ceFAZolin 1 GM Vial ONE ×2 (07:41→08:24)
[2020-01-20] MEDS ORDERED: Lactated Ringers 1,000 ML ONE (07:41)
[2020-01-20] MEDS ORDERED: Ondansetron 4 MG/2 ML SDV ONE (07:41)
[2020-01-20] MEDS ORDERED: Dexamethasone 4 MG/ML 5 ML MDV ONE (07:41)
[2020-01-20] MEDS ORDERED: Lidocaine 1% 4 ML ONE (07:41)
[2020-01-20] MEDS ORDERED: Ketamine 500 mg/10 ML MDV ONE (07:42)
[2020-01-20] MEDS ORDERED: ePHEDrine Sulfate/0.9% NaCl/Pf 25 MG/5 ML SYRINGE IV ONE (07:45)
[2020-01-20] MEDS: Lactated Ringers 1,000 ML IV SCH ×2 (07:55→12:08)
[2020-01-20] MEDS ORDERED: Iodine/Sodium Iodide 2% Tincture 30 ML Bottle ONE (08:24)
[2020-01-20] MEDS ORDERED: Bupivacaine 0.25% 10 ML SDV ONE (08:24)
[2020-01-20] MEDS ORDERED: Vancomycin 1 GM SDV ONE (08:24)
[2020-01-20] MEDS ORDERED: Morphine PF 10 MG/10 ML SDV ONE (08:47)
[2020-01-20] MEDS ORDERED: HYDROmorphone 0.5 MG/0.5 ML Syringe IVPUSH PRN (09:19)
[2020-01-20] MEDS ORDERED: Ondansetron 4 MG/2 ML SDV IVPUSH PRN (09:19)
[2020-01-20] MEDS ORDERED: fentaNYL 100 MCG/2 ML SDV IVPUSH PRN (09:19)
[2020-01-20] MEDS ORDERED: Ketorolac 15 MG/ML SDV IVPUSH PRN (11:00)
--- NOTE | 2020-01-20 11:11 | PCM.POSTAN ---
POST ANESTHESIA ASSESSMENT - MENTAL STATUS Mental Status: Alert, Oriented - VITAL SIGNS Vital Signs: Last Vital Signs Temp 36.6 C 01/20/20 10:45 Pulse Resp 12 01/20/20 11:00 BP 95/54 L 01/20/20 11:00 Pulse Ox 94 L 01/20/20 11:00 - RESPIRATORY Respiratory Status: Respiratory Rate WNL, Airway Patent, O2 Saturation Stable - CARDIOVASCULAR CV Status: Pulse Rate WNL, Blood Pressure Stable - GASTROINTESTINAL GI Status: No Symptoms - PAIN Pain Score: 0 - POST OP HYDRATION Hydration Status: Adequate & Stable - OBSERVATIONS Free Text/Narrative:: Routine transfer to PACU with handoff to RN. VSS, SV, BROWN, FAC, CTAB. Mild, asymptomatic hypotension. No concerns at this time.
[2020-01-20] MEDS ORDERED: Cyclobenzaprine 10 MG Tab PO PRN (15:00)
--- NOTE | 2020-01-20 15:57 | CR ---
Right knee: AP and lateral views of the right knee were obtained. Comparison: Prior MRI right knee study of 07/23/13 is available. Knee prosthesis is seen. Components are aligned. Underlying bony structures are intact. Soft tissue air is noted. Impression: 1. Satisfactory postoperative radiographic appearance of recently placed right knee prosthesis. Diagnostic code #2 Study was dictated in MDT
[2020-01-20] MEDS ORDERED: ceFAZolin 2 GM in Premix Bag 1 BAG IV SCH (16:00)
--- NOTE | 2020-01-27 17:02 | PCM.OPNOTE ---
- General Post-Op/Procedure Note Date of Surgery/Procedure: 01/20/20 Operative Procedure(s): right total knee arthroplasty Pre Op Diagnosis: right knee osteoarthrosis Post-Op Diagnosis: Same Anesthesia Technique: Local, MAC, Spinal Primary Surgeon: Ramirez Donovan Anesthesia Provider: William Gallagher EBL in mLs: 150 Complications: None Condition: Good Free Text/Narrative:: 10/04 9mm 35x10
--- NOTE | 2020-01-28 10:15 | OR ---
DATE OF OPERATION: 01/20/2020 SURGEON: Ramirez Donovan MD OPERATION PERFORMED: Right total knee arthroplasty. PREOPERATIVE DIAGNOSIS: Right knee osteoarthrosis. POSTOPERATIVE DIAGNOSIS: Right knee osteoarthrosis. ANESTHESIA: Local MAC with spinal. ANESTHESIA PROVIDER: William Gallagher. ESTIMATED BLOOD LOSS: 150 mL. COMPLICATIONS: None. CONDITION: Stable. IMPLANTS: 1. Dianelys size 6 press-fit CR femur. 2. Dianelys size 6 press-fit tibial baseplate. 3. Dianelys size 6, 9 mm CS polyethylene insert. 4. [place] size 35 x 10 mm press-fit asymmetric patella. DESCRIPTION OF PROCEDURE: The patient was identified in the preop holding area. Proper site was marked and identified by the surgeon. The patient was taken back to the operating theater. After adequate anesthesia, the patient's right lower extremity had a nonsterile tourniquet applied and it was sterilely prepped and draped in the usual sterile fashion. OR time-out was performed. The patient received 2 g IV Ancef. At this time, the right lower extremity was exsanguinated. Tourniquet was insufflated to 300 mmHg. Standard medial parapatellar incision was made. Medial parapatellar arthrotomy was created. Deep fibers of the MCL were raised and anterior fat pad was resected. At this time, attention was turned to the patella. Patella measured 26, it was resected to a 15 for 35 x 10 mm patella. Drill holes were then drilled and found to be in adequate position. The drill was then drilled in the distal femur and the intramedullary distal femoral cutting guide was then placed. 8 mm was resected off the distal femur and was found to be an adequate resection. Sizing guide was placed. It was found to be a size 6 press-fit CR femur that was shown on the implant record at the beginning of this dictation. The drill holes were drilled for the epicondylar axis using [place]itesides line and epicondyles as reference. At this time, the 4-in- 1 cutting block was placed. An anterior posterior and anterior and posterior chamfer cuts were then completed. Attention was turned to the tibia. The posterior medial lateral retractors were placed. The extramedullary tibial guide was placed. It was placed in the old footprint of the ACL. It was aligned with the center of the ankle and 0 degrees of slope, 9 mm was then resected off the unaffected side. There was found to be an acceptable reduction. At this time, posterior osteophytes were removed along with medial and lateral meniscus. A trial implant was placed with a correct sized tibia that was mentioned at the beginning of the dictation. A Dianelys size 6, 9 mm CS polyethylene insert was then placed. The patient's knee was brought through range of motion. The patella was tracking centrally and was stable to varus and valgus stress. Alignment was found to be roughly at 0 degrees. The tibia was stamped and drilled in proper rotation. The universal tibial base plate was impacted in place. Next, the [place] size 6 press-fit CR femur impacted into place and the Dianelys size 6, 9 mm CS polyethylene insert was placed. The patient's knee was brought into full extension. The patella was then press-fit in place at this time. Tourniquet was deflated. One liter dilute Betadine solution was irrigated through the knee along with 3 L of pulse lavage irrigation with Ancef. Periarticular injection was then completed. The patient's knee was brought through a range of motion. Knee was found to be stable to varus valgus stress, the patella was tracking centrally with full range of motion. At this time, a #2 barbed suture was used for closure of the medial parapatellar arthrotomy. Topical tranexamic acid was placed. 2-0 Vicryl was used subcutaneously, Prineo was used for the skin. The patient tolerated the procedure well and was sent to the PACU in stable condition. RADHA /[id number] GIOVANNI
== END 2020-01-20 17:30 | disposition home or self-care (01) ==
LOC: JD.SDS 07:36
PROVIDERS: ATTEND Orthopaedic Surgery
DX: M17.11 Unilateral primary osteoarthritis, right knee (principal); M25.761 Osteophyte, right knee; E78.00 Pure hypercholesterolemia, unspecified; I10 Essential (primary) hypertension; Z01.812 Encounter for preprocedural laboratory examination; Z20.828 Contact with and (suspected) exposure to other viral communicable diseases; J45.909 Unspecified asthma, uncomplicated; K21.9 Gastro-esophageal reflux disease without esophagitis; E78.2 Mixed hyperlipidemia; F51.01 Primary insomnia; F39 Unspecified mood [affective] disorder; G50.0 Trigeminal neuralgia; Z79.899 Other long term (current) drug therapy; Z91.030 Bee allergy status
CPT/HCPCS: 27447; 73560; 87635; 87641; 97110; 97140; 97161; A9270; C1776; J0171; J0690; J0697; J1100; J1885; J2001; J2250; J2270; J2370; J2405; J2704; J2795; J3010; J3370; J3490; J7120; 01402; 64450; U0002

== ENCOUNTER 2023-03-26 15:41 | Emergency (ER) | payer BC ==
[2023-03-26] MEDS ORDERED: Doxycycline Monohydrate 100 MG Cap PO ONE (17:41)
[2023-03-26] MEDS ORDERED: Amoxicillin 250 MG Cap PO ONE (17:43)
[2023-03-26] MEDS ORDERED: Amoxicillin 500 MG Cap PO ONE (18:14)
== END 2023-03-26 18:30 | disposition home or self-care (01) ==
LOC: JD.ED 15:41
DX: L03.114 Cellulitis of left upper limb (principal); I10 Essential (primary) hypertension; E78.00 Pure hypercholesterolemia, unspecified; K21.9 Gastro-esophageal reflux disease without esophagitis; J45.909 Unspecified asthma, uncomplicated; Z79.899 Other long term (current) drug therapy; Z91.030 Bee allergy status
CPT/HCPCS: 99283; A9270; 99282